=== PATIENT | female | born 1945 | race Caucasian/White ===

== ENCOUNTER → 2020-01-07 13:35 | Outpatient (BNVA) | payer MEDICARE, OTHER, SELFPAY | PROVIDERS: Family Provider Nurse Practitioner; PCP Nurse Practitioner; Visit Provider Nurse Practitioner Family | DX: N30.20 Other chronic cystitis without hematuria (principal) | CPT/HCPCS: 81001 ==

== ENCOUNTER 2020-01-11 09:34 | Outpatient (CLI) | payer MEDICARE, OTHER, SELFPAY ==
--- NOTE | 2020-01-11 09:37 | MM_ITS ---
WS: [id number] BILATERAL DIGITAL DIAGNOSTIC MAMMOGRAM MAMMOGRAPHY WITH CAD CLINICAL INFORMATION: HX OF BREAST CA COMPARISON: January 10, 2019 TECHNIQUE: Bilateral CC, MLO, and ML views. FINDINGS: Scattered fibroglandular densities bilaterally. Spiculated asymmetric density along the posterior lef t chest wall unchanged since the prior examinations consistent with prior resection site. Vascular ca lcification. No suspicious focal mass, asymmetry, calcifications, or architectural distortion. No evidence of eunice gnancy. MM/[place] [id number] IMPRESSION: BI-RADS: 2-Benign FOLLOW UP: 1 Year Follow-up Recommend return to annual diagnostic mammography.
== END 2020-01-11 09:35 | disposition home or self-care (01) ==
LOC: ONCMED 09:34
PROVIDERS: Family Provider Nurse Practitioner; PCP Nurse Practitioner; Visit Provider Internal Medicine Medical Oncology
DX: Z85.3 Personal history of malignant neoplasm of breast (principal)
CPT/HCPCS: 77066

== ENCOUNTER 2020-03-24 14:56 | Outpatient (CLI) | payer MEDICARE, OTHER, SELFPAY ==
--- NOTE | 2020-03-25 06:40 | ONC FU_ITS ---
Dr. Davis Patient Follow-Up Note Patient: Julisa Cunha Unit #: [id number]: 1945 Dicatated By: Luis Manuel Davis M.D.Date of Visit:March 24, 2020 Onc Med Follow-up/Prog Note Chief Complaint: Breast cancer. 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 She had presented with abnormal routine mammogram. The study on 12/25/2014 showed a 1.4 cm mass in the left posterior breast at 3:00 position. Mammogram on 01/09/2015 was BI-RADS 4c. She underwent excisional biopsy on 02/06/[address] Andrews. Her surgical pathology showed a 0.8 cm, grade 2/3 infiltrating adenocarcinoma with focal mucinous histology and negative margins. Lymphovascular invasion was present. Prognostic profile revealed ER 90%, MT 40%, HER-2/jose alfredo 2+ by IHC, not amplified by FISH at 1.3. [place] lymph node biopsy on 03/07/2015 recovered 3 negative lymph nodes. Thus, her disease was stage IA (T1b, N0, M0). She completed adjuvant radiation treatment on 05/05/2015 to a total dose of 6000 cGy. She did eventually agree to adjuvant hormonal treatment and she started anastrozole 1 mg daily in March of 2015. DEXA scan revealed osteopenia, with T score -1.5. She also was noted to have vitamin D deficiency and received replacement. She had subsequently developed a large cyst in the left lower breast, for which she underwent aspiration on 07/15/2015. Follow-up ultrasound of the left breast on 12/02/2015 showed decrease in the size of the cyst to 0.8 cm. As of her follow-up visit on 04/19/2018 she appeared to be tolerating treatment with acceptable toxicity and she continued anastrozole 1 mg daily. She was seen for a scheduled visit in October 2018. At that time she indicated that she had stopped taking the anastrozole 2 1/2 months earlier, apparently because it was no longer being provided to her by the data communications analyst and she was going to have to pay for it. At that time she had been feeling somewhat foggy headed and off-balance, and those symptoms did improve when she stopped the medication. She then began further adjuvant hormonal therapy with exemestane 25 mg daily. She stopped the exemestane following her visit in March 2019 due to multiple side effects. At her follow-up visit in September 2019 she appeared stable clinically and at that point she was just followed on observation/expectant management. Her other medical illnesses include hypertension and GERD. She also has chronic left sciatic pain. She is a nonsmoker. She is seen for a follow-up visit. She has been feeling pretty good generally. She reports having some aches and pains which tend to be weather related. Recently she is also been having pain in the sciatic area on the right side. That pain tends to get worse with activity and does restrict her activity somewhat. Her ECOG score is 1. She says her energy is the same as usual. She has good appetite. She does not have fever, night sweats, or hot flashes. She had developed a bad cough back in December, but that has resolved. She has no shortness of breath or chest pain. She has no GI/ complaints other than a little bit of heartburn, which she manages adequately with medication. She has had headaches which appear to be associated with salt intake, and those have been managed adequately with dietary restriction. She has no focal neurologic symptoms. Medications: Cholecalciferol 1 (3000 Units) Tablet Oral daily, Cod Liver Oil 1 (1000 mg) Capsule Oral daily, Diovan 1 (40 mg) Tablet Oral daily PRN, Gabapentin 1 (100 mg) Capsule Oral b.i.d., Triamterene-HCTZ 1 (37.5-25 mg) Tablet Oral daily Allergies: lisinopril and surgical glue. Review of Systems: Constitutional - She is generally feeling good. Her energy is good. She does light work in and around the house. Her appetite is good and weight is down 10 pounds from last visit. No fever, chills, hot flashes, or night sweats. ECOG score is 1, ENMT - No sinus congestion/drainage. No mouth sores. No sore throat or difficulty swallowing, Hematologic/Lymphatic - No abnormal bruising or bleeding, Respiratory - No shortness of breath. No cough. No pleuritic pain or hemoptysis, Cardiovascular - No angina pain. No palpitations, Gastrointestinal - No nausea or vomiting. She has heartburn in the evenings. She is taking Pepcid for this. No diarrhea or constipation. No blood in the stool or black stools, Genitourinary (F) - No dysuria or hematuria. No urinary frequency. No urgency or incontinence, Musculoskeletal - She has generalized arthritis pain as well as sciatic nerve pain that occasional limits her activity, Integumentary - No skin complications, Neurologic - No headache or dizziness. No numbness/paresthesias or other focal neurologic symptoms, Psychiatric - No anxiety or depression. No insomnia. Vital Signs: Performed on March 24, 2020 15:10 Height - 65.00 in Weight - 215.2 lbs (LOW) BSA - 2.04 sq.m BMI - 35.81 (HIGH) Temperature - 98.7 F Pulse - 62 /min Respiration - 24 /min BP - 148/72 mm(hg) (HIGH) O2 Sat - 98 % Pain - 0 Physical Examination: Constitutional - She looks good generally, Eyes - Sclerae nonicteric. Conjunctivae clear, ENMT - No lesions noted in the oral cavity, Hematologic/Lymphatic - No cervical or clavicular adenopathy, Respiratory - Lungs are clear with good air movement bilaterally, Cardiovascular - Heart rhythm is regular. There is no murmur, gallop, or rub noted, Breasts - There is mild induration in the left breast. There are no breast masses noted. There is no axillary adenopathy, Abdomen - Soft. Liver and spleen are not enlarged. There is no abdominal mass or ascites noted and there is no inguinal adenopathy, Extremities - No edema. Pedal pulses are palpable bilaterally, Neurologic - No focal neurologic deficits noted. Impression: 1. 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 She underwent excisional biopsy on 02/06/2015 followed by axillary sentinel lymph node biopsy on 03/07/2015. 2. She was given radiation to the left breast, completed on 05/05/2015 to 6000 cGy. 3. Adjuvant hormonal therapy with anastrozole 1 mg daily began in March 2015. 4. Her initial screening showed evidence of osteopenia, T score -1.5, and vitamin D deficiency. Her other medical illnesses include: 5. Hypertension. 6. GERD. 7. She has had chronic left sciatic pain. As of her follow-up visit in April 2018 she been doing well with no evidence of recurrence of the breast cancer. She continued anastrozole 1 mg daily. She opted to stop treatment in July 2018 because the medication was no longer being provided. It did appear likely that she was having some mild REED MAN symptoms with the anastrozole, and those did improve when she stopped the medication. In November 2018 she began further adjuvant hormonal therapy with exemestane 25 mg daily. Initially she seemed to be tolerating it with acceptable toxicity. However, following her visit in March 2019 she developed multiple side effects with it, and she did opt to stop taking it. During follow-up she has continued to have some musculoskeletal pain, mainly in the right sciatic area. It does limit her activity somewhat, but it does not seem to be getting worse. She had developed pretty severe headaches, those have been managed adequately with dietary sodium restriction. Overall, she appears to be doing well clinically with no evidence of recurrence of the breast cancer. Plan: She continues on observation/expectant management for the breast cancer. I will see her again in one year. Signed By: Luis Manuel Davis M.D. <<Signature on File>>
== END 2020-03-24 14:57 | disposition home or self-care (01) ==
LOC: ONCMED 14:58
PROVIDERS: PCP Nurse Practitioner; Visit Provider Internal Medicine Medical Oncology
DX: Z08 Encounter for follow-up examination after completed treatment for malignant neoplasm (principal); Z85.3 Personal history of malignant neoplasm of breast; M54.32 Sciatica, left side; R51 Headache; M85.80 Other specified disorders of bone density and structure, unspecified site; E55.9 Vitamin D deficiency, unspecified; I10 Essential (primary) hypertension; K21.9 Gastro-esophageal reflux disease without esophagitis; Z92.3 Personal history of irradiation; Z92.23 Personal history of estrogen therapy
CPT/HCPCS: G0463

== ENCOUNTER 2020-04-23 10:00 | Inpatient (IN) | payer MEDICARE, OTHER, SELFPAY ==
[2020-04-23] VITALS (7 sets, daily range): BP systolic 118–138; BP diastolic 57–77; PULSE 74–96; RESP 16–20; TEMP 36.8–37; O2SAT 92–95; BMI 35.2
--- NOTE | 2020-04-23 10:33 | XR_ITS ---
WS: [id number] Portable AP upright chest, 04/23/2020 Clinical Data: dyspnea/cough Comparison: PA and lateral chest, 05/15/2019. Findings: No nodules, masses or effusions are seen. The heart is normal. The pulmonary vascularity is not increased. No pneumonia or pneumothorax is seen. Monitor leads are on the chest wall. The aortic arch and descending aorta show minimal tortuosity XR/XR chest 1V portable [id number] Impression: Atherosclerosis.
--- NOTE | 2020-04-23 10:47 | ECG_ITS ---
Measurements Intervals [place] Rate: 96 P: 43 LA: 150 QRS: 65 QRSD: 106 T: -12 QT: 316 QTc: 401 SINUS RHYTHM POSSIBLE LEFT ATRIAL ENLARGEMENT [-0.1mV P WAVE IN V1/V2] PROBABLE INFERIOR MYOCARDIAL INFARCTION , PROBABLY OLD [35 ms Q WAVE IN II/aVF] Compared to ECG 05/24/2019 11:30:23 Ectopic atrial rhythm no longer present Short LA interval no longer present Myocardial infarct finding still present Electronically Signed On 04-23-2020 15:55:22 CDT by Tonny Tirado M.D. [id number]
--- NOTE | 2020-04-23 10:48 | ED_ITS ---
HPI - General Adult General: Chief complaint: General Medical Stated complaint: weak/confused/can't keep food down Time Seen by Provider: 04/23/20 10:18 History of Present Illness: HPI narrative: 75-year-old female comes in complaining nausea vomiting weakness. Last night she slipped to the floor had to call her daughter to come and get her up and help she was not down for prolonged period of time. She has had chronic back pain with this as well not really has not changed she denies any dysuria urgency or frequency denies any hematemesis coffee-ground emesis. She has a generalized discomfort in her abdomen that she describes as a queasiness but no real sharp distinct pain. Her daughter states she seems rather lethargic. Patient denies any shortness of breath or cough. She has noted that eating certain things makes it worse. Onset (ago): day(s) Location: abdomen Radiation: non-radiation Severity: moderate Quality: aching Pain Consistency: intermittent Relieving factors: other (Not eating) Exacerbating factors: eating Associated symptoms: Reports decreased appetite, malaise, nausea, vomiting and weakness; Deny dyspnea, fevers/chills, headache(s), rash, palpitations, seizures, short of breath or syncope Treatments prior to arrival: none Review of Systems Const: Reports: malaise ENMT: Denies: throat pain, ear or mastoid pain, nasal discharge or nasal conge stion Card: Denies: palpitations or syncope Resp: Denies: dyspnea GI: Reports: nausea and vomiting : Denies: flank pain, difficulty voiding, dysuria, urinary frequency or urinary urgency Skin/Breast: Denies: rash Neuro: Denies: headache(s) PFSH ED PFSH: Medical History Chronic cystitis Chronic left lumbar radiculopathy Gastro-esophageal reflux disease without esophagitis Gross hematuria History of cancer of left breast December 2014 HTN, goal below 130/80 Mixed hyperlipidemia Refusal of statin medication by patient Vitamin D insufficiency Surgical History H/O breast biopsy History of bilateral cataract extraction S/P lymph node biopsy Status post hip replacement Family History Family/Other CAD (coronary artery disease) Stroke Hypertension Cancer Breast Social History Smoking and tobacco status: never smoked Second hand smoke exposure: No Smoking risk assessment/counseling performed?: No Alcohol intake: never Desire information about alcohol rehabilitation?: No Counseling given: No Desire information about substance/drug rehabilitation?: No Counseling given: No Caregiver/support person: No Lives independently: Yes Household members: none Marital status: Current occupational status: retired History of recent travel: No Physical Exam Const: COMMON NORMALS: no acute distress GENERAL APPEARANCE: cooperative and comfortable ORIENTATION/CONSCIOUSNESS: Yes awake, Yes oriented to person, Yes oriented to place and Yes oriented to time HENMT: COMMON NORMALS: normocephalic, atraumatic, hearing grossly normal bilaterally, external ears normal, EAC's normal, TM's normal bilaterally, Normal nasal mucous membranes and turbinates present, moist oral mucous membranes and oropharynx normal HEAD & SCALP: normocephalic and atraumatic NOSE: Normal nasal mucous membranes and turbinates present EXTERNAL EAR: Yes external ears normal EXTERNAL AUDITORY CANAL: EAC's normal TYMPANIC MEMBRANE: TM's normal bilaterally Eye: COMMON NORMALS: Equal, round and reactive pupils present, EOMs intact bilaterally, conjunctivae normal and no scleral icterus CONJUNCTIVA: Yes conjunctivae normal PUPIL: Yes Equal, round and reactive pupils present Neck/C-Spine: COMMON NORMALS: full ROM, no lymphadenopathy, supple and no JVD Lymph: LYMPHATIC: no lymphadenopathy noted and no lymphedema noted Resp: COMMON NORMALS: normal respiratory effort, No retractions, No use of accessory muscles and clear to auscultation bilaterally AUSCULTATION: clear to auscultation bilaterally Cardio: COMMON NORMALS: no JVD, regular rate, regular rhythm and No murmurs present (Cardio) RATE: regular rate RHYTHM: regular rhythm GI: COMMON NORMALS: Soft to palpation and No hepatosplenomegaly present AUSCULTATION: Yes normoactive bowel sounds PALPATION: Yes Soft to palpation, No Tenderness to palpation present (GI), No Guarding due to palpation present (GI) and Yes No hepatosplenomegaly present Extremity: COMMON NORMALS: normal to inspection, capillary refill normal, no clubbing, cyanosis or edema, no calf tenderness and no pedal edema Neuro: SENSORIUM/ORIENTATION: Yes oriented to person, Yes oriented to place and Yes oriented to time Skin: COMMON NORMALS: no rashes or lesions noted GENERAL SKIN EXAM: no rashes or lesions noted Course Vital Signs: Vital signs: Vital Signs Temperature 98.2 F 04/23/20 10:26 Pulse Rate 92 04/23/20 15:14 Respiratory Rate 18 04/23/20 15:14 Blood Pressure 135/70 04/23/20 15:14 Pulse Oximetry 95 04/23/20 15:14 MDM - General Adult MDM Narrative: Medical decision making narrative: Reviewed the findings the patient has chronic cystitis she has been on Bactrim recently does not look like she is improving I suspect the Bactrim may have exacerbated her kidney function her usual creatinine is around 1 3 she is up to 2 4 additionally because of persistent nausea and vomiting she is hyponatremic which also contributes significantly to her generalized weakness. Also of note is for thrombocytopenia which when reviewing her old notes is also new. Discussed with Dr. Choi she will admit. Lab Data: Labs: Lab Results 04/23/20 04/23/20 04/23/20 Range/Units 10:55 10:55 10:55 WBC 8.4 (4.0-10.0) 10^3/ uL RBC 4.76 (4.1-5.3) 10^6/u L Hgb 13.7 (11.5-15.3) g/dL Hct 42.7 (37.0-47.0) % MCV 89.7 (81-99) fL MCH 28.8 (28.0-34.0) pg MCHC 32.1 (30.0-36.0) g/dL RDW 13.3 (12.1-15.1) % Plt Count 53 L (130-400) 10^3/c mm MPV 12.6 H (7.4-10.4) fL Nucleated RBC % (a uto) 0 % Total Counted 100 (0-100) Atypical Lymphs % 1.0 (0-5) % Absolute Neutrophi ls 7.4 H (1.4-6.5) 10^3/c mm Segmented Neutroph ils 70 % Abs Segm Neuts (Ma n) 5.8 (1.6-7.1) 10/cmm Band Neutrophils 18.0 % Abs Band Neuts (Ma n) 1.5 H (0.0-1.2) 10^3/c mm Absolute Lymphocyt es 0.7 L (1.2-3.4) 10^3/c mm Lymphocytes (Manua l) 7 % Monocytes (Manual) 4.0 % Absolute Monocytes 0.3 (0.1-0.6) 10^3/c mm Nucleated RBCs # 0.0 /100WBC Platelet Estimate Decreased L (Normal) Sodium 122 L (136-145) mmol/L Potassium 4.0 (3.5-5.1) mmol/L Chloride 87 L (98-107) mmol/L Carbon Dioxide 19 L (22-29) mmol/L Anion Gap 20.0 H (5-19) BUN 42 H (8-23) mg/dL Creatinine 2.4 H (0.5-0.9) mg/dL Glucose 122 H (65-115) mg/dL Calculated Osmolal ity 253 L (285-295) mOsm/k g Lactate 2.0 (0.5-2.2) mmol/L Calcium 8.3 L (8.5-10.5) mg/dL Total Bilirubin 0.9 (0.15-1.2) mg/dL AST 811 H (0-32) U/L ALT 408 H (0-33) U/L Alkaline Phosphata se 192 H (35-105) IU/L Creatine Kinase (26-192) U/L Total Protein 6.1 L (6.6-8.7) g/dL Albumin 3.4 L (3.5-5.2) g/dL Globulin 2.7 (1.3-4.6) g/dL Lipase 35 (13-60) U/L Urine Color (Yellow) Urine Appearance (CLEAR) Urine pH (5-7) Ur Specific Gravit y (1.005-1.030) Urine Protein (Negative) Urine Glucose (UA) (Normal) Urine Ketones (Negative) Urine Blood (Negative) Urine Nitrate (Negative) Urine Bilirubin (NEGATIVE) Urine Urobilinogen (Negative) mg/dL Ur Leukocyte [place] ase (Negative) Urine RBC (0-2) /hpf Urine WBC (0-5) /hpf Ur Squamous Epith Cells (0-5) Ur Transition Epit h Cell /hpf Urine Bacteria (NONE) Coarse Granular Ca sts /lpf Urine Mucus 04/23/20 04/23/20 Range/Units 10:55 11:27 WBC (4.0-10.0) 10^3/ uL RBC (4.1-5.3) 10^6/u L Hgb (11.5-15.3) g/dL Hct (37.0-47.0) % MCV (81-99) fL MCH (28.0-34.0) pg MCHC (30.0-36.0) g/dL RDW (12.1-15.1) % Plt Count (130-400) 10^3/c mm MPV (7.4-10.4) fL Nucleated RBC % (a uto) % Total Counted (0-100) Atypical Lymphs % (0-5) % Absolute Neutrophi ls (1.4-6.5) 10^3/c mm Segmented Neutroph ils % Abs Segm Neuts (Ma n) (1.6-7.1) 10/cmm Band Neutrophils % Abs Band Neuts (Ma n) (0.0-1.2) 10^3/c mm Absolute Lymphocyt es (1.2-3.4) 10^3/c mm Lymphocytes (Manua l) % Monocytes (Manual) % Absolute Monocytes (0.1-0.6) 10^3/c mm Nucleated RBCs # /100WBC Platelet Estimate (Normal) Sodium (136-145) mmol/L Potassium (3.5-5.1) mmol/L Chloride (98-107) mmol/L Carbon Dioxide (22-29) mmol/L Anion Gap (5-19) BUN (8-23) mg/dL Creatinine (0.5-0.9) mg/dL Glucose (65-115) mg/dL Calculated Osmolal ity (285-295) mOsm/k g Lactate (0.5-2.2) mmol/L Calcium (8.5-10.5) mg/dL Total Bilirubin (0.15-1.2) mg/dL AST (0-32) U/L ALT (0-33) U/L Alkaline Phosphata se (35-105) IU/L Creatine Kinase 353 H* (26-192) U/L Total Protein (6.6-8.7) g/dL Albumin (3.5-5.2) g/dL Globulin (1.3-4.6) g/dL Lipase (13-60) U/L Urine Color Yellow (Yellow) Urine Appearance Sl cloudy A (CLEAR) Urine pH 5 (5-7) Ur Specific Gravit y 1.020 (1.005-1.030) Urine Protein 1+ H (Negative) Urine Glucose (UA) Norm (Normal) Urine Ketones Negative (Negative) Urine Blood 3+ H (Negative) Urine Nitrate Negative (Negative) Urine Bilirubin 1+ H (NEGATIVE) Urine Urobilinogen 4 H (Negative) mg/dL Ur Leukocyte [place] ase 1+ H (Negative) Urine RBC 0-4 H (0-2) /hpf Urine WBC 40-55 H (0-5) /hpf Ur Squamous Epith Cells 0-4 H (0-5) Ur Transition Epit h Cell 5-10 /hpf Urine Bacteria 2+ H (NONE) Coarse Granular Ca sts 25-40 H /lpf Urine Mucus Trace Discharge Plan Discharge Patient Disposition: Admitted As Inpatient Admit Provider: Renetta Pate Clinical Impression: Acute kidney injury, Chronic cystitis, Chronic left lumbar radiculopathy, Acute hyponatremia, Thrombocytopenia Condition: Stable Interventions: ED Discharge Assessment Last Done: 04/23/20 15:14 ED Charges Last Done: 04/23/20 15:14 Discharge Date/Time: 04/23/20 15:39 Coding Level of Care Code ED Electric[employer] Office for [facility] Fwd Exam Comprehensive
[2020-04-23] MEDS: ondansetron 2 mg/ML SDV 2 mL 4 MG IVP (11:05)
[2020-04-23 11:06] LABS: Hematocrit 42.7 % (37.0-47.0); Hemoglobin 13.7 g/dL (11.5-15.3); Mean Corpuscular HGB Conc 32.1 g/dL (30.0-36.0); Mean Corpuscular Hemoglobin 28.8 pg (28.0-34.0); Mean Corpuscular Volume 89.7 fL (81-99); Mean Platelet Volume 12.6 fL (7.4-10.4); Nucleated Red Blood Cells % 0 %; Platelet Count 53 10^3/cmm (130-400); Positive M 1; Red Blood Count 4.76 10^6/uL (4.1-5.3); Red Cell Distribution Width 13.3 % (12.1-15.1); White Blood Count 8.4 10^3/uL (4.0-10.0)
[2020-04-23] MEDS: sodium chloride 0.9% 500 ML 999 ML IV (11:06)
[2020-04-23 11:19] LABS: Alanine Aminotransferase 408 U/L (0-33); Albumin Level 3.4 g/dL (3.5-5.2); Alkaline Phosphatase 192 IU/L (35-105); Blood Urea Nitrogen 42 mg/dL (8-23); Calcium 8.3 mg/dL (8.5-10.5); Carbon Dioxide 19 mmol/L (22-29); Chloride 87 mmol/L (98-107); Globulin 2.7 g/dL (1.3-4.6); Glucose 122 mg/dL (65-115); Lipase 35 U/L (13-60); Osmolality Calculated 253 mOsm/kg (285-295); Sodium 122 mmol/L (136-145); Total Bilirubin 0.9 mg/dL (0.15-1.2); Total Protein 6.1 g/dL (6.6-8.7)
[2020-04-23 11:35] LABS: Add Urine Microscopic? YES; Bilirubin Urine 1+ (NEGATIVE); Blood Urine 3+ (Negative); Glucose Urine UA Norm (Normal); Ketones Urine Negative (Negative); Leukocyte Esterase Urine 1+ (Negative); Nitrate Urine Negative (Negative); Protein Urine 1+ (Negative); Urine Color Yellow (Yellow); Urobilinogen Urine 4 mg/dL (Negative); pH Urine 5 (5-7)
[2020-04-23 11:39] LABS: Slide Review Slide Review Perform
[2020-04-23 11:42] LABS: Absolute Neutrophil 7.4 10^3/cmm (1.4-6.5); Absolute Segmented Neutrophil 5.8 10/cmm (1.6-7.1); Band Neutrophils Absolute 1.5 10^3/cmm (0.0-1.2); Lymphocytes 7 %; Monocytes Absolute 0.3 10^3/cmm (0.1-0.6); Platelet Estimate Decreased (Normal); Segmented Neutrophils 70 %; Total Cells Counted 100 (0-100)
[2020-04-23 11:43] LABS: Lymphocytes Absolute 0.7 10^3/cmm (1.2-3.4)
[2020-04-23 11:46] LABS: Bacteria Urine 2+; RBC Urine 0-4 /hpf (0-2); Squamous Epithelial Cell Urine 0-4 (0-5); WBC Urine 40-55 /hpf (0-5)
[2020-04-23 11:47] LABS: Coarse Granular Casts Urine 25-40 /lpf; Mucus Urine TRACE
[2020-04-23 11:48] LABS: Add Urine Culture? Yes
[2020-04-23 12:02] LABS: Aspartate Amino Transferase 811 U/L (0-32)
[2020-04-23] MEDS: cefTRIAXone 1,000 MG in sodium chloride 0.9% (plus) 50 ML 100 MG IV (13:51)
[2020-04-23 14:32] LABS: Creatine Phosphokinase 353 U/L (26-192)
--- NOTE | 2020-04-23 14:52 | PM.HP ---
Providers/Chief Complaint Admitting Physician: Renetta Pate MD Primary Care Provider: Natasha Sheffield, VIDEO PHOTOGRAPHER-C Chief Complaint: weak/confused/can't keep food down History of Present Illness Julisa Cunha is a 75 year old female who presented to the emergency room after a second episode falling down at home within the preceding 24 hours. Both times EMS had to be called to help get her up. Over the last few days patient has been feeling progressively weaker and rundown. She has had some intermittent fevers. She has had nausea. At times she has been confused. She has a history of chronic cystitis with recurrent urinary tract infections and has a standing prescription for Bactrim which she recently started. Symptoms though this time are different than what she usually has with UTIs. She denies the same degree of dysuria or urinary frequency. Family had wanted her to come into the emergency room last night but she insisted that she was okay. She seemed more confused this morning and after the second fall was not given a choice about whether or not she wanted to come in. She has not been eating very much due to nausea and some vomiting. In the emergency room she was found to have multiple laboratory abnormalities including acute renal failure, thrombocytopenia, transaminitis, hyponatremia, elevated CK level Elevated procalcitonin. Chest x-ray did not show any acute infiltrative process. Urine was cloudy and suggestive of a urinary tract infection. She was given Rocephin and is being admitted for further evaluation and treatment. Of note lactic acid level was normal at 2.0. Patient has had several ticks already this year. One in particular was behind her left knee and quite difficult to remove. She is not sure how long it was there. This is been within the last few weeks. Review of Systems Const: Reports: fever(s), chills and change in appetite Eyes: Denies: change in vision ENMT: Reports: dry mouth; Denies: throat pain or nasal congestion Card: Denies: chest pain, palpitations or edema Resp: Denies: dyspnea, productive cough or non-productive cough GI: Reports: abdominal pain, nausea and vomiting; Denies: change in bowel habits : Denies: flank pain, dysuria or urinary frequency Musc: Denies: extremity pain (but achey all over) Skin/Breast: Reports: other (tick bites); Denies: rash or sores Neuro: Reports: weakness in extremities (general) and confusion; Denies: headache(s) Psych: Denies: anxiety or depression Aleksandr/Lymph: Denies: easy bruising or easy bleeding Medications/Allergies Home Medications Medication Instructions Recorded Confirmed Last Taken Type cholecalciferol (vitamin D3) 100 4,000 unit PO DAILY 01/07/20 04/23/20 04/20/20 History mcg (4,000 unit) capsule cod liver oil 1 cap PO DAILY 01/07/20 04/23/20 04/20/20 History famotidine 20 mg tablet 20 mg PO DAILY #90 tab 02/12/20 04/23/20 04/20/20 Rx gabapentin 100 mg capsule 100 mg PO BID #180 cap 02/12/20 04/23/20 04/23/20 Rx triamterene 37.5 1 tab PO QAM #90 tab 02/12/20 04/23/20 04/23/20 Rx mg-hydrochlorothiazide 25 mg tablet ibuprofen 600 mg PO BID PRN 04/23/20 04/23/20 04/22/20 History valsartan [Diovan] 80 mg PO PRN PRN 04/23/20 04/23/20 Unknown History Allergies Allergy/AdvReac Type Severity Reaction Status Date / Time benzoin Allergy Unknown Unknown Verified 12/20/19 13:07 lisinopril Allergy dizziness, Verified 12/20/19 13:07 head pain PFSH Acute PFSH: Medical History Chronic cystitis Chronic left lumbar radiculopathy Gastro-esophageal reflux disease without esophagitis Gross hematuria History of cancer of left breast December 2014 HTN, goal below 130/80 Mixed hyperlipidemia Refusal of statin medication by patient Vitamin D insufficiency Surgical History H/O breast biopsy History of bilateral cataract extraction S/P lymph node biopsy Status post hip replacement Family History Family/Other CAD (coronary artery disease) Stroke Hypertension Cancer Breast Social History Smoking and tobacco status: never smoked Second hand smoke exposure: No Smoking risk assessment/counseling performed?: No Alcohol intake: never Desire information about alcohol rehabilitation?: No Counseling given: No Desire information about substance/drug rehabilitation?: No Counseling given: No Caregiver/support person: No Lives independently: Yes Household members: none Marital status: Current occupational status: retired History of recent travel: No Vitals/I&O/Wt Last Vital Signs Temp 98.2 F 04/23/20 10:26 Pulse 96 04/23/20 10:26 Resp 16 04/23/20 10:26 BP 123/62 04/23/20 10:26 Pulse Ox 93 04/23/20 10:26 Weight last 48 hrs Weight 96.162 kg Physical Exam Const: OTHER: Alert, oriented x3, cooperative, mildy ill appearing HENMT: OTHER: Normocephalic atraumatic, drymucus membranes Eye: OTHER: Pupils equally round and reactive to light Neck/C-Spine: OTHER: Supple, no lymphadenopathy Resp: OTHER: Clear to auscultation bilaterally, no rales, rhonchi or wheezes noted, no accessory muscle use noted Cardio: OTHER: Regular rate and rhythm, no murmurs gallops or rubs. GI: OTHER: Abdomen soft, nontender, nondistended with positive bowel sounds Extremity: NARRATIVE EXTREMITY EXAM: no pitting edema Neuro: OTHER: Face symmetric, speech clear, moves all extremities though generally weak Psych: OTHER: Normal affect Skin: OTHER: a few minor healing scratches noted, no rashes Data : 04/24/20 03:30 04/24/20 03:30 Micro: Microbiology 04/23/20 11:00 Blood Culture - Preliminary Blood SPECIMEN COLLECTED 04/23/20 10:55 Blood Culture - Preliminary Blood SPECIMEN COLLECTED A&P Assessment and plan (1) Recurrent falls: Multifactorial from infection, renal failure, hyponatremia Status: Acute (2) Acute encephalopathy: Multifactorial from infection, renal failure, hyponatremia Status: Acute (3) Acute renal failure: On chronic kidney disease Status: Acute (4) Acute cystitis: In a patient with chronic cystitis Status: Acute (5) Tick-borne disease: Strongly suspected given thrombocytopenia and transaminitis combined with report of previous tick bite Status: Acute Additional A&P Information Inpatient admission Rocephin Doxycycline Tick titers have been sent Discussed this likely diagnosis with family as well as patient Follow-up urine cultures Blood cultures were collected Continue IV fluids Most home medications are held including Diovan, triamterene/hydrochlorothiazide, ibuprofen Held home Pepcid due to thrombocytopenia We will add calcium carbonate Reinforced with patient not to get out of bed without assistance No pharmacological DVT prophylaxis secondary to thrombocytopenia, SCDs ordered Supportive care otherwise Full code Plans reviewed with patient and daughter. Daughter has iPhone and would like to be able to communicate with her mother via video if arrangements for such can be made while she is here Attestations Medical Necessity Statement*: Anticipated stay greater than 2 midnights in a patient with symptoms as noted above. She has evidence of urinary tract infection but I think her symptoms are probably to be more related to tickborne illness. At high risk of clinical decline given comorbid conditions and recurrent issues over the last few days. 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
[2020-04-23] MEDS: doxycycline 100 mg Tablet PO (16:45)
[2020-04-23] MEDS: sodium chloride 0.9% 1,000 ML 100 ML IV (16:46)
[2020-04-23 16:54] LABS: Procalcitonin 3.88 ng/mL (0-0.5)
[2020-04-23] MEDS: gabapentin 100 mg Capsule PO (17:26)
[2020-04-24 03:50] LABS: Basophils # 0.1 10^3/uL (0.0-0.1); Basophils % 0.9 %; Eosinophils % 0.3 %; Hematocrit 37.6 % (37.0-47.0); Lymphocytes # 2.4 10^3/uL (0.8-4.8); Lymphocytes % 36.4 %; Mean Corpuscular HGB Conc 31.9 g/dL (30.0-36.0); Mean Corpuscular Hemoglobin 28.5 pg (28.0-34.0); Mean Corpuscular Volume 89.3 fL (81-99); Mean Platelet Volume 11.2 fL (7.4-10.4); Monocytes # 0.4 10^3/uL (0.2-0.9); Monocytes % 6.2 %; Neutrophils # 3.6 10^3/uL (1.8-7.7); Neutrophils % 55.9 %; Nucleated Red Blood Cells % 0 %; Platelet Count 54 10^3/cmm (130-400); Red Blood Count 4.21 10^6/uL (4.1-5.3); Red Cell Distribution Width 13.6 % (12.1-15.1); White Blood Count 6.5 10^3/uL (4.0-10.0)
[2020-04-24 03:53] VITALS: BP 118/63; PULSE 88; RESP 20; TEMP 37.1; O2SAT 93
[2020-04-24] MEDS: sodium chloride 0.9% 1,000 ML 100 ML IV ×3 (03:55→23:23)
--- NOTE | 2020-04-24 03:58 | PC.NURSE ---
after ambulating with walker to the bathroom, although patient did well physically, she did become short of breath after getting back to the bed. Checked her pulse/O2 and it was 88%. patient stated this is not normal for her. d/t fluid going at 100ml/hr i checked he lungs for signs of fluid overload. Lungs were clear, but diminished - no audible crackles. Placed patient on 2L nasal cannula and after a short time patient settled at 93% O2. i explained to the patient about SOB and if it got worse to let a nurse know. Pt states no HX of CHF.
[2020-04-24 04:10] LABS: Anion Gap 15.9 (5-19); Blood Urea Nitrogen 39 mg/dL (8-23); Calcium 8.3 mg/dL (8.5-10.5); Carbon Dioxide 22 mmol/L (22-29); Chloride 93 mmol/L (98-107); Glucose 100 mg/dL (65-115); Magnesium 2.1 mg/dL (1.7-2.3); Osmolality Calculated 262 mOsm/kg (285-295); Potassium 3.9 mmol/L (3.5-5.1); Sodium 127 mmol/L (136-145)
[2020-04-24 05:31] LABS: Slide Review Slide Review Perform
[2020-04-24 08:00] VITALS: BP 125/72; PULSE 85; RESP 18; TEMP 36.9; O2SAT 94
[2020-04-24] MEDS: gabapentin 100 mg Capsule PO ×2 (08:02→17:12)
[2020-04-24] MEDS: doxycycline 100 mg Tablet PO ×2 (08:02→17:12)
[2020-04-24 08:41] LABS: Alanine Aminotransferase 409 U/L (0-33); Albumin Level 2.9 g/dL (3.5-5.2); Alkaline Phosphatase 175 IU/L (35-105); Globulin 2.8 g/dL (1.3-4.6); Total Bilirubin 0.6 mg/dL (0.15-1.2); Total Protein 5.7 g/dL (6.6-8.7)
[2020-04-24 08:51] LABS: INR 1.07 (0.8-1.2); Partial Thromboplastin Time 32.2 SECONDS (23.9-36.7)
[2020-04-24 08:57] LABS: Aspartate Amino Transferase 812 U/L (0-32)
--- NOTE | 2020-04-24 10:35 | PC.CHAP ---
Pastoral Care Encounter/Spiritual Assessment Type of Contact [] Declined general inspector visit [] Patient/Family/Request visit [] Outpatient visit [] Follow-up visit [] Physician referral [] Code/Alert [x] Routine visit [] Staff referral [] Actively dying [] Patient sleeping [] Family support [] [] Out of room [] Palliative care [] [] Receiving care in room [] Pre-surgical visit [] Trauma [] Long length of stay [] ICU visit [] Other: Relational/Emotional Strength [x] Patient feels connected with others/family/visitors/staff [] Distress [] Loneliness/isolation [] Abandonment Spirituality of Patient [x] Person of Sharri [] Attends [facility] of their Sharri [] Believes in Prayer [] Reads Bible or Yazidism materials [x] There are Spiritual issues to be addressed Patient Registration Representative Interventions [x] Prayer [x] Active listening [] Non-anxious presence [] Spiritual/emotional support [] Crisis/trauma care [] Spiritual counseling [] Bereavement support [] Provided bereavement packet [] Provided Bible/devotional materials [] Provided toy/stuffed animal, coloring book to patient or family member [] Provided Communion [] Anointing/[place] [] Salvation [] Completed spiritual assessment [] Other: Impact on Illness or Injury [] Angry [] Fearful [] Anxious [] Often cries [] Exhaustion [] Unable to work [] Unable to attend taoism [] Unable to walk/stand [] Unable to read [] Unable to drive [] Unable to eat/drink [] Unable to sleep [] Unable to be with family [] Patient intubated [] Other: Summary Time spent with patient 3 minutes
[2020-04-24 11:20] VITALS: BP 109/71; PULSE 69; RESP 16; TEMP 36.8; O2SAT 93
[2020-04-24] MEDS: cefTRIAXone 1,000 MG in sodium chloride 0.9% (plus) 50 ML 100 MG IV (12:22)
[2020-04-24 15:24] VITALS: BP 106/69; PULSE 77; RESP 16; TEMP 36.9; O2SAT 92
[2020-04-24 20:00] VITALS: BP 117/71; PULSE 67; RESP 16; TEMP 36.6; O2SAT 97
--- NOTE | 2020-04-24 22:31 | PM.PN ---
Subjective Subjective: Interval history: Patient feeling better today. Has a little bit of an appetite. No vomiting. Still very tired and weak. No new complaints. Medications: Medication Review Details: On doxycycline and Rocephin Vitals/I&O/Wt Last Vital Signs Temp 97.8 F 04/24/20 20:00 Pulse 67 04/24/20 20:00 Resp 16 04/24/20 20:00 BP 117/71 04/24/20 20:00 Pulse Ox 97 04/24/20 20:00 04/24/20 04/24/20 04/24/20 06:59 14:59 22:59 Intake Total 1000 / 1790 1616.667 / 1616.667 760 / 2376.667 Balance 1000 / 1790 1616.667 / 1616.667 760 / 2376.667 Weight last 48 hrs Weight 96.479 kg Weight 96.162 kg Physical Exam Const: OTHER: Less ill-appearing, alert, cooperative HENMT: OTHER: Moist mucus membranes Eye: OTHER: Extraocular movements are intact Neck/C-Spine: OTHER: Supple Resp: OTHER: Clear to auscultation bilaterally Cardio: OTHER: Regular rate and rhythm, no murmurs GI: OTHER: Abdomen soft, nontender, nondistended with positive bowel sounds Extremity: NARRATIVE EXTREMITY EXAM: No pitting edema, no erythematous or swollen joints noted Neuro: OTHER: Face symmetric, speech clear, moves all extremities though generally weak Psych: OTHER: Normal affect Skin: OTHER: No rashes or significant petechia noted Data : 04/24/20 03:30 04/24/20 03:30 Micro: Microbiology 04/23/20 10:55 Blood Culture - Preliminary Blood NEGATIVE TO DATE 04/23/20 11:00 Blood Culture - Preliminary Blood NEGATIVE TO DATE 04/23/20 11:27 Urine Culture - Preliminary Urine Catheterized Gram Negative Rods A&P Assessment and plan (1) Recurrent falls: Multifactorial from infection, renal failure, hyponatremia Status: Acute (2) Acute encephalopathy: Improved, suspect a large part of it was due to renal failure and other electrolyte abnormalities Status: Acute (3) Acute renal failure: On chronic kidney disease stage II. Creatinine improved today with hydration Status: Acute Qualifiers: Acute renal failure type: with acute tubular necrosis Qualified Code(s): N17.0 - Acute kidney failure with tubular necrosis (4) Acute cystitis: In a patient with chronic cystitis Status: Acute Qualifiers: Hematuria presence: without hematuria Qualified Code(s): N30.00 - Acute cystitis without hematuria (5) Tick-borne disease: Strongly suspected diagnosis given thrombocytopenia and transaminitis combined with report of previous tick bite Status: Acute (6) Gastro-esophageal reflux disease without esophagitis: Status: Chronic Additional A&P Information Continue Rocephin and follow-up urine cultures Continue doxycycline and follow-up tick titers Follow-up pending blood cultures Decrease IV fluids Remains off of Diovan, triamterene/hydrochlorothiazide and ibuprofen Off of home Pepcid due to thrombocytopenia, calcium carbonate ordered in interim PT evaluation No pharmacological DVT prophylaxis secondary to thrombocytopenia, SCDs ordered Reviewed plans and findings with patient as well as later with her daughter. Both were given an opportunity to ask questions Daughter has iPhone and would like to be able to communicate with her mother via video if arrangements for such can be made while she is here Supportive care otherwise Anticipate discharge home although she may require some close monitoring by available family or even staying with family short-term while she recovers. She will agree to home health if it is felt necessary. Her daughter lives an hour away. Full code Attestations Medical Necessity Statement*: Requires ongoing inpatient stay while we monitor response to treatment and follow-up pending urine cultures. 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
[2020-04-25] VITALS: BP 103/62; PULSE 60; RESP 17; TEMP 36.5; O2SAT 95
[2020-04-25 04:00] VITALS: BP 122/69; PULSE 67; RESP 16; TEMP 36.3; O2SAT 122
[2020-04-25 05:18] LABS: Basophils % 0.9 %; Eosinophils % 0.2 %; Hematocrit 35.9 % (37.0-47.0); Hemoglobin 11.3 g/dL (11.5-15.3); Lymphocytes # 2.9 10^3/uL (0.8-4.8); Lymphocytes % 62.7 %; Mean Corpuscular HGB Conc 31.5 g/dL (30.0-36.0); Mean Corpuscular Hemoglobin 28.6 pg (28.0-34.0); Mean Corpuscular Volume 90.9 fL (81-99); Mean Platelet Volume 11.1 fL (7.4-10.4); Monocytes # 0.4 10^3/uL (0.2-0.9); Monocytes % 7.6 %; Neutrophils # 1.3 10^3/uL (1.8-7.7); Neutrophils % 28.4 %; Nucleated Red Blood Cells % 0 %; Platelet Count 57 10^3/cmm (130-400); Red Blood Count 3.95 10^6/uL (4.1-5.3); Red Cell Distribution Width 14.1 % (12.1-15.1); White Blood Count 4.6 10^3/uL (4.0-10.0)
[2020-04-25 05:44] LABS: Alanine Aminotransferase 338 U/L (0-33); Albumin Level 2.6 g/dL (3.5-5.2); Alkaline Phosphatase 158 IU/L (35-105); Anion Gap 15.6 (5-19); Aspartate Amino Transferase 576 U/L (0-32); Blood Urea Nitrogen 25 mg/dL (8-23); Carbon Dioxide 22 mmol/L (22-29); Chloride 100 mmol/L (98-107); Creatinine Clr Calc Pharmacy 47.5255; Globulin 2.7 g/dL (1.3-4.6); Glucose 89 mg/dL (65-115); Osmolality Calculated 274 mOsm/kg (285-295); Potassium 3.6 mmol/L (3.5-5.1); Sodium 134 mmol/L (136-145); Total Bilirubin 0.4 mg/dL (0.15-1.2); Total Protein 5.3 g/dL (6.6-8.7)
[2020-04-25 06:04] LABS: Slide Review Slide Review Perform
[2020-04-25 07:32] VITALS: BP 110/68; PULSE 63; RESP 18; TEMP 36.5; O2SAT 96
[2020-04-25] MEDS: doxycycline 100 mg Tablet PO ×2 (08:48→17:59)
[2020-04-25] MEDS: gabapentin 100 mg Capsule PO ×2 (08:49→17:59)
--- NOTE | 2020-04-25 09:28 | PC.CHAP ---
Pastoral Care Encounter/Spiritual Assessment Type of Contact [] Declined melter assistant visit [] Patient/Family/Request visit [] Outpatient visit [] Follow-up visit [] Physician referral [] Code/Alert [x] Routine visit [] Staff referral [] Actively dying [] Patient sleeping [] Family support [] [] Out of room [] Palliative care [] [] Receiving care in room [] Pre-surgical visit [] Trauma [] Long length of stay [] ICU visit [] Other: Relational/Emotional Strength [] Patient feels connected with others/family/visitors/staff [] Distress [] Loneliness/isolation [] Abandonment Spirituality of Patient [] Person of Sharri [] Attends Jain of their Sharri [] Believes in Prayer [] Reads Bible or Episcopal materials [] There are Spiritual issues to be addressed Mobile Pet Groomer Interventions [x] Prayer [] Active listening [] Non-anxious presence [] Spiritual/emotional support [] Crisis/trauma care [] Spiritual counseling [] Bereavement support [] Provided bereavement packet [] Provided Bible/devotional materials [] Provided toy/stuffed animal, coloring book to patient or family member [] Provided Communion [] Anointing/[place] [] Salvation [x] Completed spiritual assessment [] Other: Impact on Illness or Injury [] Angry [] Fearful [] Anxious [] Often cries [] Exhaustion [] Unable to work [] Unable to attend methodist [] Unable to walk/stand [] Unable to read [] Unable to drive [] Unable to eat/drink [] Unable to sleep [] Unable to be with family [] Patient intubated [] Other: Summary Visited briefly with patient, feeling stronger. Time spent with patient 5 min
[2020-04-25] MEDS: sodium chloride 0.9% 1,000 ML 100 ML IV ×2 (10:08→19:52)
[2020-04-25 12:00] VITALS: BP 117/66; PULSE 65; RESP 18; TEMP 36.7; O2SAT 95
[2020-04-25] MEDS: cefTRIAXone 1,000 MG in sodium chloride 0.9% (plus) 50 ML 100 MG IV (12:42)
[2020-04-25 13:25] LABS: Lyme AB Screen <0.90 index
[2020-04-25 15:02] VITALS: BP 132/77; PULSE 69; RESP 18; TEMP 36.8; O2SAT 96
--- NOTE | 2020-04-25 17:51 | P.PN_ITS ---
Subjective Subjective: Interval history: Patient feeling better. Still weak. Got a little bit dizzy when she stood up with physical therapy today but did not tell them that. It resolved after a few minutes. Tolerating oral intake. No new complaints. Medications: Medication Review Details: Remains on doxycycline and Rocephin Vitals/I&O/Wt Last Vital Signs Temp 98.3 F 04/25/20 15:02 Pulse 69 04/25/20 15:02 Resp 18 04/25/20 15:02 BP 132/77 04/25/20 15:02 Pulse Ox 96 04/25/20 15:02 04/25/20 04/25/20 04/25/20 06:59 14:59 22:59 Intake Total 120 / 3095.000 1480 / 1480 Output Total 200 / 400 Balance -80 / 2695.000 1480 / 1480 Weight last 48 hrs Weight 100.301 kg Weight 100.301 kg Weight 96.479 kg Physical Exam Const: OTHER: Alert and oriented, cooperative still looks weak Eye: OTHER: Extraocular movements are intact Neck/C-Spine: OTHER: Supple Resp: OTHER: Clear to auscultation bilaterally Cardio: OTHER: Regular rate and rhythm, no murmurs GI: OTHER: Abdomen soft, nontender Extremity: NARRATIVE EXTREMITY EXAM: No pitting edema, no erythematous or swollen joints noted Neuro: OTHER: Face symmetric, speech clear, moves all extremities though remains generally weak, particularly in the lower extremities Psych: OTHER: Normal affect Skin: OTHER: No rashes or significant petechia noted Data : 04/25/20 04:35 04/25/20 04:35 Other Labs: Laboratory Tests 04/25/20 04:35 AST 576 H ALT 338 H Albumin 2.6 L Micro: Microbiology 04/23/20 11:27 Urine Culture - Final Urine Catheterized Escherichia coli 04/23/20 10:55 Blood Culture - Preliminary Blood NEGATIVE TO DATE 04/23/20 11:00 Blood Culture - Preliminary Blood NEGATIVE TO DATE Tick panel still pending A&P Assessment and plan (1) Recurrent falls: Multifactorial from infection, renal failure, hyponatremia Status: Acute (2) Acute encephalopathy: Resolved, metabolic Status: Acute (3) Acute renal failure: On chronic kidney disease stage II. Closer to baseline Status: Acute Qualifiers: Acute renal failure type: with acute tubular necrosis Qualified Code(s): N17.0 - Acute kidney failure with tubular necrosis (4) Acute cystitis: In a patient with chronic cystitis. Urine culture with E. coli, sensitive to cephalosporins Status: Acute Qualifiers: Hematuria presence: without hematuria Qualified Code(s): N30.00 - Acute cystitis without hematuria (5) Tick-borne disease: Strongly suspected diagnosis given thrombocytopenia and transaminitis combined with report of previous tick bite Status: Acute (6) Gastro-esophageal reflux disease without esophagitis: Status: Chronic Additional A&P Information Changed to oral cefuroxime Continue doxycycline and follow-up tick titers Follow-up pending blood cultures Decrease IV fluids Will recommend staying off of ibuprofen after discharge for a while to allow her kidneys to heal Anticipate resumption of Diovan followed later by triamterene/hydrochlorothiazide as blood pressures and renal function improved Off of home Pepcid due to thrombocytopenia, calcium carbonate ordered in interim PT working with patient, currently using a walker, daughter states that she has 1 for her mother at home No pharmacological DVT prophylaxis secondary to thrombocytopenia, SCDs ordered Reviewed plans and findings with patient as well as later with her daughter, both given opportunity to ask questions Daughter has iPhone and would like to be able to communicate with her mother via video if arrangements for such can be made while she is here Supportive care otherwise Possible discharge tomorrow depending on how she does with therapy and overall clinically. Patient does live alone. She has agreed to allow neighbors and friends to check on her and assist her in her recovery. Patient's daughter lives about an hour away. Full code Attestations Medical Necessity Statement*: Requires continued fluids, increasing activity and monitoring for safety for disposition back home by herself versus alternative arrangements. Coding Level of Care Code Acute Collection Systems Modeler for g Fwd Diagnoses Recurrent falls R29.6 Acute encephalopathy G93.40 Acute renal failure N17.0 Acute renal failure type: with acute tubular necrosis Acute cystitis N30.00 Hematuria presence: without hematuria Tick-borne disease B88.2 Gastro-esophageal reflux disease without esophagitis K21.9
[2020-04-25 19:38] VITALS: BP 136/70; PULSE 66; RESP 18; TEMP 36.5; O2SAT 96
[2020-04-26] VITALS: BP 132/74; PULSE 68; RESP 17; TEMP 36.4; O2SAT 97
[2020-04-26 04:00] VITALS: BP 139/75; PULSE 66; RESP 18; TEMP 36.6; O2SAT 98
[2020-04-26 05:28] LABS: Basophils % 0.5 %; Eosinophils % 0.5 %; Hematocrit 37.9 % (37.0-47.0); Hemoglobin 11.9 g/dL (11.5-15.3); Lymphocytes # 2.7 10^3/uL (0.8-4.8); Lymphocytes % 60.8 %; Mean Corpuscular HGB Conc 31.4 g/dL (30.0-36.0); Mean Corpuscular Hemoglobin 28.7 pg (28.0-34.0); Mean Corpuscular Volume 91.5 fL (81-99); Mean Platelet Volume 10.9 fL (7.4-10.4); Monocytes # 0.5 10^3/uL (0.2-0.9); Monocytes % 10.8 %; Neutrophils # 1.2 10^3/uL (1.8-7.7); Nucleated Red Blood Cells % 0 %; Platelet Count 69 10^3/cmm (130-400); Red Blood Count 4.14 10^6/uL (4.1-5.3); Red Cell Distribution Width 14.2 % (12.1-15.1); White Blood Count 4.4 10^3/uL (4.0-10.0)
[2020-04-26] MEDS: sodium chloride 0.9% 1,000 ML 50 ML IV (05:29)
[2020-04-26 05:54] LABS: INR 0.95 (0.8-1.2)
[2020-04-26 06:11] LABS: Magnesium 1.7 mg/dL (1.7-2.3)
[2020-04-26 06:14] LABS: Creatine Phosphokinase 87 U/L (26-192)
[2020-04-26 06:15] LABS: Alanine Aminotransferase 273 U/L (0-33); Albumin Level 2.7 g/dL (3.5-5.2); Alkaline Phosphatase 167 IU/L (35-105); Anion Gap 16.7 (5-19); Aspartate Amino Transferase 375 U/L (0-32); Blood Urea Nitrogen 17 mg/dL (8-23); Calcium 8.1 mg/dL (8.5-10.5); Carbon Dioxide 22 mmol/L (22-29); Chloride 102 mmol/L (98-107); Globulin 2.4 g/dL (1.3-4.6); Glucose 87 mg/dL (65-115); Osmolality Calculated 280 mOsm/kg (285-295); Potassium 3.7 mmol/L (3.5-5.1); Sodium 137 mmol/L (136-145); Total Bilirubin 0.3 mg/dL (0.15-1.2); Total Protein 5.1 g/dL (6.6-8.7)
[2020-04-26 06:28] LABS: Neutrophils % 27.4 %
[2020-04-26 06:29] LABS: Slide Review Slide Review Perform
[2020-04-26 07:22] VITALS: BP 133/78; PULSE 58; RESP 18; TEMP 36.8; O2SAT 97
[2020-04-26] MEDS: gabapentin 100 mg Capsule PO (08:56)
[2020-04-26] MEDS: cefUROXime 250 mg Tablet PO (08:56)
[2020-04-26] MEDS: doxycycline 100 mg Tablet PO (08:56)
--- NOTE | 2020-04-26 10:32 | PC.SOCIAL ---
IMM Update Pg. 2 of IMM given and explained to patient, who verbalized understanding. Initialed, dated, and timed and placed in chart.
--- NOTE | 2020-04-26 11:06 | P.DS_ITS ---
Discharge Providers Date of Admission: 04/23/20 13:40 Date of Discharge: April 26, 2020 Attending Provider at Admission: Renetta Pate MD Attending Provider at Discharge: Renetta Pate MD Primary Care Provider: TEDDY Mckeon Diagnoses at Discharge Discharge Diagnosis (1) Recurrent falls: Status: Acute (2) Acute encephalopathy: Status: Resolved Problem details: Metabolic (3) Acute renal failure: Status: Resolved Qualifiers: Acute renal failure type: with acute tubular necrosis Qualified Code(s): N17.0 - Acute kidney failure with tubular necrosis (4) Acute cystitis: Status: Acute Qualifiers: Hematuria presence: without hematuria Qualified Code(s): N30.00 - Acute cystitis without hematuria (5) Tick-borne disease: Status: Acute (6) Gastro-esophageal reflux disease without esophagitis: Status: Chronic Reason for Visit Reason for Visit: weak/confused/can't keep food down Hospital Course Hospital Course: Mrs. Menendez presented to the emergency room after a second fall in less than 24 hours. EMS had to be called to help her up both times because she could not really do anything for herself. She initially refused to come to the emergency room but her daughter did not give her a choice the second time. She was confused and not acting like herself. She had started some Bactrim recently for probable acute on chronic cystitis which is a recurrent issue for her. The confusion and weakness were part of what made her think that she had a UTI but she admitted that she did not have the same degree of dysuria or urinary frequency as she usually does. She reported nausea and vomiting and general malaise and just profound weakness. She was found to have multiple laboratory abnormalities and admitted for further evaluation and treatment. She was started on Rocephin for coverage of urinary tract infection based on urinalysis. Also noted was elevated transaminases and thrombocytopenia. She reported she has seen several ticks on her this year including one that was difficult to remove behind her knee. She was empirically started on doxycycline and tick titers were sent. She received IV fluids and home medications were held including ARB and diuretic therapy as well as ibuprofen. She had evidence of acute renal failure in addition to acute metabolic encephalopathy. With treatment, patient's mental status and strength improved as did her laboratory studies. Urine culture ended up growing only 40-50,000 CFU's of E. coli. This could be due to a partially treated infection. Organism though was resistant to Bactrim which she had started as well as resistant to ampicillin and Unasyn. It was sensitive to Rocephin which she has been treated with while here. She was transitioned to oral cefuroxime to complete a course of treatment for acute cystitis. Disease was back prior to discharge and unremarkable. Other tick titers were still pending. Platelet count had increased from 53 at presentation to 69 at discharge. AST had improved from 812 to 375 and ALT had improved from 409 to 273. Clinically and based on laboratory studies, patient was felt to have a tickborne illness and will complete a 14-day treatment of doxycycline as well. She will need repeat laboratory studies to ensure continued improvement. Coagulation studies were never elevated alkaline phosphatase improved from 192 to 167. Bilirubin was normal range. Abdominal imaging was not done and she did not really complain of abdominal pain per se. She had an elevated procalcitonin at 3.8. Chest x-ray showed no nodule masses or effusions and no pneumonia or other acute changes. Twelve-lead EKG was unchanged from previous studies. Lipase was normal. Renal function improved from 42/2.4 to17/0.9 prior to discharge. I resumed triamterene hydrochlorothiazide prior to discharge. I have currently asked her to continue to hold the Diovan as well as the ibuprofen. This is not only due to renal failure but in terms of the ibuprofen due to the thrombocytopenia. She will need to follow-up with her primary care provider and get official results from pending tick titers. Reviewed this with both her and her daughter. Patient declined consideration for home health and she had actually improved enough that it was not felt necessary. Patient does live alone and currently not considering recommendations to have somebody stay with her or for her to stay with someone else for short period of time. I did provide information that she should not take more than 2 g of Tylenol currently in a 24-hour period of time secondary to elevated liver enzymes and not to take kcic-afi-[id number] ibuprofen due to the low platelets. With her that she needs to wear long sleeves and pants while on doxycycline and to stay out of the sun when she is able. Orders for CBC and repeat CMP have been placed for 1 week from now. Patient was awake and alert, oriented to person place and situation and able to ambulate without feeling dizzy or stumbling for short distances. Her daughter was able to get her a walker with brakes and a seat for home use and I encouraged patient to use this. Her lungs were clear and she had a regular rh ythm. She was felt stable for outpatient follow-up. Discharge Data Data Completed and Pending: Completed Studies During Hospitalization Category Date Time Status XR chest 1V arie ble [id number] Stat Exams 04/23/20 10:33 Completed Pending at discharge Category Date Time Status Blood Culture Sta t Lab 04/23/20 11:00 Results Tick Panel Routin e Lab 04/23/20 17:20 Results Labs from last 24 hours 04/26/20 04/26/20 04/26/20 04:27 04:27 04:27 WBC RBC Hgb Hct MCV MCH MCHC RDW Plt Count MPV Neut % (Auto) Lymph % (Auto) Armstrong % (Auto) Eos % (Auto) Baso % (Auto) Neut # (Auto) Lymph # (Auto) Armstrong # (Auto) Eos # (Auto) Baso # (Auto) Nucleated RBC % (a uto) Nucleated RBCs # PT 12.90 INR 0.95 Sodium Potassium Chloride Carbon Dioxide Anion Gap BUN Creatinine Glucose Calculated Osmolal ity Calcium Magnesium 1.7 Total Bilirubin AST ALT Alkaline Phosphata se Creatine Kinase 87 Total Protein Albumin Globulin Lyme Ab (Western B lot) 04/26/20 04/26/20 04/23/20 04:27 04:27 17:20 WBC 4.4 RBC 4.14 Hgb 11.9 Hct 37.9 MCV 91.5 MCH 28.7 MCHC 31.4 RDW 14.2 Plt Count 69 L MPV 10.9 H Neut % (Auto) 27.4 Lymph % (Auto) 60.8 Armstrong % (Auto) 10.8 Eos % (Auto) 0.5 Baso % (Auto) 0.5 Neut # (Auto) 1.2 L Lymph # (Auto) 2.7 Armstrong # (Auto) 0.5 Eos # (Auto) 0.0 Baso # (Auto) 0.0 Nucleated RBC % (a uto) 0 Nucleated RBCs # 0.0 PT INR Sodium 137 Potassium 3.7 Chloride 102 Carbon Dioxide 22 Anion Gap 16.7 BUN 17 Creatinine 0.9 Glucose 87 Calculated Osmolal ity 280 L Calcium 8.1 L Magnesium Total Bilirubin 0.3 AST 375 H ALT 273 H Alkaline Phosphata se 167 H Creatine Kinase Total Protein 5.1 L Albumin 2.7 L Globulin 2.4 Lyme Ab (Western B lot) <0.90 Vitals: Last Vital Signs Temp 98.3 F 04/26/20 07:22 Pulse 58 L 04/26/20 07:22 Resp 18 04/26/20 07:22 BP 133/78 04/26/20 07:22 Pulse Ox 97 04/26/20 07:22 Discharge Plan Discharge Patient Disposition: Home, Self-Care Condition: Stable Prescriptions: New cefuroxime axetil 250 mg Tablet 250 mg PO BID Qty: 10 RF: 0 doxycycline monohydrate 100 mg Tablet 100 mg PO BID Qty: 22 RF: 0 Continued cholecalciferol (vitamin D3) 4,000 unit capsule 4,000 unit PO DAILY RF: 0 cod liver oil Capsule 1 cap PO DAILY RF: 0 famotidine 20 mg tablet 20 mg PO DAILY Qty: 90 RF: 0 gabapentin 100 mg capsule 100 mg PO BID Qty: 180 RF: 0 triamterene-hydrochlorothiazid 37.5-25 mg tablet 1 tab PO QAM Qty: 90 RF: 0 Held ibuprofen 200 mg Capsule 600 mg PO BID PRN (Reason: Pain) RF: 0 Hold Instructions: Hold for at least 2 weeks secondary to renal failure. Acetaminophen or tylenol is a safe alternative if you do not exceed 2 grams per day (four 500mg tablets). valsartan [Diovan] 80 mg tablet 80 mg PO PRN PRN (Reason: Blood Pressure) RF: 0 Hold Instructions: Discuss resumption with PCP before taking Discharge Orders: Discharge Order (Routine); Ordered 04/26/20 Ordered By: Renetta Pate Other Ambulatory Orders: Complete Blood Count w/Auto (Routine) Timeframe: 1 Week Location: Determined by Patient Ordered By: Renetta Pate Comprehensive Metabolic Panel (Routine) Timeframe: 1 Week Location: Determined by Patient Ordered By: Renetta Pate Referrals: Natasha Sheffield FNP-C [Primary Care Provider] - 4-7 days (With labs which are ordered - CMP, CBC. Follow up tick titers and final on blood cultures. Faxed information to the Clinic and they will call you with a time and date for follow up appoinment.) Discharge Diet: Advance as tolerated Discharge Activity: Use walker/crutches as instructed Patient Instructions: Cefuroxime (By mouth), Doxycycline (By mouth), Tick Bite (DC), Hyponatremia (DC), Hedrick Spotted Fever Activity Restrictions/Additional Instructions: You presented to the emergency room with altered mental status, weakness with a couple of falls, difficulty keeping food down and general malaise. Intermittent fevers were also reported. Laboratory work-up in the emergency room revealed evidence of acute cystitis on top of chronic cystitis as well as evidence of acute renal failure with BUN/creatinine 42/2.4 at admission along with hyponatremia with a sodium of 122. You were given IV fluids and started on Rocephin. Urine culture was sent. Also identified where elevated transaminases and thrombocytopenia. These particular laboratory abnormalities are classically associated with tickborne illness in this area. Further discussion review revealed that she had had several ticks found on you this year including one that was very difficult to remove. Tick titers were collected and you were started on doxycycline. You improved significantly with hydration. Your renal function normalized. Sodium level corrected. Urine culture grew out 40-50,000 CFU's of E. coli that was sensitive to cephalosporins. While the colony count is low, decision was made to continue you on cefuroxime given your chronic urinary history. Your appetite improved and overall you are feeling better. Physical therapy evaluated you and felt it was safe for discharge home as you w ere ambulating around without need of assistance. Lyme disease was back negative however ehrlichiosis and Hedrick spotted fever tick titers are still pending at the time of discharge. Platelet count, which was as low as 53 at admission, was slowly trending upward and was at 69 on the day of discharge. Transaminases peaked at an AST of. 812 and an ALT of 409. On the day of discharge values were down to 375 and 273 respectively. Blood cultures were no growth to date with final still pending. Your triamterene/hydrochlorothiazide was held while you were here. You can restart it. Recommend holding ibuprofen for at least 2 weeks secondary to thrombocytopenia and recent acute kidney injury to give your kidneys a break. You will need to have laboratory studies rechecked before you can start taking ibuprofen or any other thtl-nco-jtisxzy NSAID again. You may take ygox-gyb-lfyzijd Tylenol for pain or fever but do not exceed four 500 mg tablets daily for the time being due to elevated liver enzymes should you have any recurrent fever, recurrent mental status symptoms, bleeding or recurrent nausea see your primary care provider or if serious symptoms return to the emergency room. It can take a few weeks and sometimes even longer to fully recover from a tickborne illness. Again at the time of discharge tickborne illness is a presumptive diagnosis based on clinical findi ngs and laboratory studies. Doxycycline has been prescribed as treatment for this. Take antibiotic as directed. You will need to stay out of direct sunlight for extended periods while you are on doxycycline. If you need to go outside you need to wear a hat and long sleeves, long pants. Follow-up plans are to see Natasha next week with repeat labs. I have included paperwork that reviews Hedrick Spotted Fever but you DO NOT at this time have this diagnosis. Tests are still pending. Nevertheless the instructions on this are still relevant. Discharge Date/Time: 04/26/20 12:25 Discharge Attestations Time Spent in Discharge Care*: greater than 30 min Quality Metrics Clinical Quality Measures During this hospital stay, did patient experience: None Coding Level of Care Code Acute [employer] for [employer] Fwd Diagnoses Recurrent falls R29.6 Acute encephalopathy G93.40 Acute renal failure N17.0 Acute renal failure type: with acute tubular necrosis Acute cystitis N30.00 Hematuria presence: without hematuria Tick-borne disease B88.2 Gastro-esophageal reflux disease without esophagitis K21.9
[2020-04-26 11:08] VITALS: BP 133/79; PULSE 67; RESP 16; TEMP 36.8; O2SAT 96
[2020-04-26 11:31] VITALS: BP 133/79; PULSE 67; RESP 16; TEMP 36.8; O2SAT 96
--- NOTE | 2020-04-26 12:03 | PC.NURSE ---
Iv D/c'd bleeding controlled with 2x2 and coban ,cath intact. discharge instruction given.
[2020-04-26 13:37] VITALS: BP 133/79; PULSE 67; RESP 16; TEMP 36.8; O2SAT 96
[2020-04-29 17:05] LABS: RMSF IGG NOT DETECTED; RMSF IGM NOT DETECTED
[2020-04-30 22:15] LABS: E. Chaffeensis AB IGG >=1:1024
== END 2020-04-26 12:25 | disposition home or self-care (01) | DRG 682 ==
LOC: ER 10:31 → MEDSURG 14:48
PROVIDERS: Family Medicine; Admitting Provider Hospitalist; PCP Nurse Practitioner; Visit Provider Hospitalist
DX: N17.0 Acute kidney failure with tubular necrosis (principal); G93.41 Metabolic encephalopathy; E87.1 Hypo-osmolality and hyponatremia; A94 Unspecified arthropod-borne viral fever; N30.00 Acute cystitis without hematuria; Z16.20 Resistance to unspecified antibiotic; G93.40 Encephalopathy, unspecified; K21.9 Gastro-esophageal reflux disease without esophagitis; R29.6 Repeated falls; D69.6 Thrombocytopenia, unspecified; B96.20 Unspecified Escherichia coli [E. coli] as the cause of diseases classified elsewhere; N18.2 Chronic kidney disease, stage 2 (mild); E78.2 Mixed hyperlipidemia; M54.16 Radiculopathy, lumbar region; Z85.3 Personal history of malignant neoplasm of breast; I12.9 Hypertensive chronic kidney disease with stage 1 through stage 4 chronic kidney disease, or unspecified chronic kidney disease; G89.29 Other chronic pain
CPT/HCPCS: 12345; 36415; 71045; 80048; 80053; 80076; 81001; 82550; 83605; 83690; 83735; 84100; 84145; 85007; 85025; 85610; 85730; 86618; 86666; 86757; 87040; 87077; 87086; 87186; 93005; 96375; 97161; 97530; 99283; J0696; J2405; J7030; J7040

== ENCOUNTER → 2020-05-02 10:32 | Outpatient (BNVA) | payer MEDICARE, OTHER, SELFPAY | PROVIDERS: PCP Nurse Practitioner; Visit Provider Nurse Practitioner | DX: B88.2 Other arthropod infestations (principal); D69.6 Thrombocytopenia, unspecified; E87.1 Hypo-osmolality and hyponatremia; N17.9 Acute kidney failure, unspecified; N30.00 Acute cystitis without hematuria | CPT/HCPCS: 80053; 81000; 85025 ==

== ENCOUNTER 2020-06-09 09:15 | Outpatient (CLI) | payer MEDICARE, OTHER, SELFPAY ==
[2020-06-09 10:10] LABS: Alanine Aminotransferase 51 U/L (0-33); Albumin Level 3.9 g/dL (3.5-5.2); Alkaline Phosphatase 102 IU/L (35-105); Blood Urea Nitrogen 18 mg/dL (8-23); Calcium 9.9 mg/dL (8.5-10.5); Carbon Dioxide 26 mmol/L (22-29); Chloride 99 mmol/L (98-107); Globulin 3.5 g/dL (1.3-4.6); Glucose 119 mg/dL (65-115); Osmolality Calculated 282 mOsm/kg (285-295); Sodium 137 mmol/L (136-145); Total Bilirubin 0.6 mg/dL (0.15-1.2); Total Protein 7.4 g/dL (6.6-8.7)
[2020-06-09 10:29] LABS: Anion Gap 15.9 (5-19); Aspartate Amino Transferase 64 U/L (0-32); Potassium 3.9 mmol/L (3.5-5.1)
== END 2020-06-09 09:16 | disposition home or self-care (01) ==
PROVIDERS: PCP Nurse Practitioner; Visit Provider Nurse Practitioner
DX: B88.2 Other arthropod infestations (principal)
CPT/HCPCS: 80053

== ENCOUNTER → 2020-06-10 09:34 | Outpatient (BNVA) | payer MEDICARE, OTHER, SELFPAY | PROVIDERS: PCP Nurse Practitioner; Visit Provider Nurse Practitioner | DX: E78.2 Mixed hyperlipidemia (principal); I10 Essential (primary) hypertension; N30.20 Other chronic cystitis without hematuria; R26.81 Unsteadiness on feet; R39.11 Hesitancy of micturition; M54.16 Radiculopathy, lumbar region | CPT/HCPCS: 80053; 81000 ==

== ENCOUNTER 2020-06-13 16:11 | Outpatient (CLI) | payer MEDICARE, OTHER, SELFPAY ==
--- NOTE | 2020-06-13 16:22 | XRR_ITS ---
PROCEDURE INFORMATION: Exam: XR Right Knee Exam date and time: 06/13/2020 4:50 PM Age: 75 years old Clinical indication: Right; Patient HX: Unsteady on feet. C/O bilat knee pain. Chronic lumbar radiculopathy; Additional info: Gait unsteady TECHNIQUE: Imaging protocol: XR Right knee. Views: 3 views. COMPARISON: No relevant prior studies available. FINDINGS: Bones/joints: Mild degenerative change. Contour irregularity about the patella, without acute bony injury. Soft tissues: Unremarkable. XR/XR knee RT 3V* [id number] IMPRESSION: Mild degenerative change.
--- NOTE | 2020-06-13 16:22 | XRR_ITS ---
PROCEDURE INFORMATION: Exam: XR Left Knee Exam date and time: 06/13/2020 4:54 PM Age: 75 years old Clinical indication: Left; Patient HX: Unsteady on feet. C/O chronic bilat knee pain. Chronic lumbar radiculopathy; Additional info: Unsteady gait TECHNIQUE: Imaging protocol: XR Left knee. Views: 3 views. COMPARISON: No relevant prior studies available. FINDINGS: Bones/joints: Degenerative change and small joint effusion. No acute bony injury or malalignment. Soft tissues: Unremarkable. Vasculature: Vascular calcification. XR/XR knee LT 3V* [id number] IMPRESSION: Degenerative change and small joint effusion.
--- NOTE | 2020-06-13 17:30 | MRR_ITS ---
PROCEDURE INFORMATION: Exam: MR Lumbar Spine Without Contrast. Exam date and time: 06/13/2020 5:30 PM Age: 75 years old Clinical indication: Low back pain; Patient HX: PT C/O chronic lbp. Injury as a child; Additional info: M54.16 radiculopathy, lumbar region TECHNIQUE: Imaging protocol: Multiplanar magnetic resonance images of the lumbar spine without intravenous contrast. COMPARISON: No relevant prior studies available. FINDINGS: Vertebrae: The lawnmower mechanic image shows multilevel degenerative changes of varying severity in the cervical and thoracic spine. There is mild spinal canal stenosis at C3-C4, C4-C5, and C5-C6. Vertebral body height is maintained. No subluxation. No bone marrow edema. No evidence for ligamentous injury. Spinal epidural space: No evidence for an epidural hematoma. Spinal cord: No signal abnormality in the visualized spinal cord, conus medullaris, or cauda equina. Spinal cord terminates at L1 vertebral body level. T11-T12: Sagittal images show a small left central disc herniation. T12-L1: Saddle images show mild bilateral facet hypertrophy. L1-L2: Small broadbased posterior disc bulge. Mild bilateral facet hypertrophy. Mild ligamentum flavum thickening. L2-L3: Small symmetric circumferential disc bulge. Mild bilateral facet hypertrophy. Moderate ligamentum flavum thickening. Mild bilateral foraminal stenosis. L3-L4: Small broadbased posterior disc bulge. Mild right facet hypertrophy. Severe left facet hypertrophy. Moderate ligamentum flavum thickening. Mild left foraminal stenosis. L4-L5: Small broadbased posterior disc bulge. Mild right facet hypertrophy. Moderate left facet hypertrophy. Ynox-pj-simyhfgp ligamentum flavum thickening. L5-S1: Small posterior disc osteophyte complex. Mild bilateral facet hypertrophy. Kidneys and ureters: Simple cysts in both right and left kidneys, some are partially visualized. Soft tissues: No paravertebral soft tissue abnormality. MR/MR lumbar spine wo con* [id number] IMPRESSION: 1. Multilevel degenerative changes in the lumbar spine. No significant spinal canal stenosis. Mild bilateral foraminal stenosis at L2-L3 and mild left foraminal stenosis at L3-L4. 2. The lawnmower mechanic image shows multilevel degenerative changes of varying severity in the cervical and thoracic spine. There is mild spinal canal stenosis at C3-C4, C4-C5, and C5-C6. 3. Incidental/nonacute findings are listed in the report.
== END 2020-06-13 16:12 | disposition home or self-care (01) ==
PROVIDERS: PCP Nurse Practitioner; Visit Provider Nurse Practitioner
DX: M54.5 Low back pain (principal); M54.16 Radiculopathy, lumbar region; M48.061 Spinal stenosis, lumbar region without neurogenic claudication; M48.02 Spinal stenosis, cervical region; M25.562 Pain in left knee; M25.561 Pain in right knee; M25.462 Effusion, left knee
CPT/HCPCS: 72148; 73562

== ENCOUNTER 2020-06-16 18:20 | Observation (INO) | payer MEDICARE, OTHER, SELFPAY ==
[2020-06-16 18:20] VITALS: BP 188/107; PULSE 69; RESP 18; TEMP 36.9; O2SAT 97
[2020-06-16 18:21] VITALS: BMI 34.4
--- NOTE | 2020-06-16 18:43 | CTR_ITS ---
PROCEDURE INFORMATION: Exam: CT Head Without Contrast Exam date and time: 06/16/2020 7:10 PM Age: 75 years old Clinical indication: Numbness / parasthesia and weakness, extremity; Bilateral; Left; Additional info: Left arm numbness, confusion TECHNIQUE: Imaging protocol: Computed tomography of the head without contrast. Radiation optimization: All CT scans at this facility use at least one of these dose optimization techniques: automated exposure control; mA and/or kV adjustment per patient size (includes targeted exams where dose is matched to clinical indication); or iterative reconstruction. COMPARISON: CT head wo con* [id number] 05/24/2019 12:19 PM RADIATION DOSE METRICS: Total DLP (mGy-cm): 861.35 FINDINGS: Brain: Evidence of mild small vessel ischemic disease. No visible acute intracranial pathologic process or hemorrhage. Ventricles: No ventriculomegaly. Bones/joints: Unremarkable. No acute fracture. Sinuses: Tiny amount of fluid within the left sphenoid air cell. No other evidence of active paranasal sinus disease. Mastoid air cells: Visualized mastoid air cells are well aerated. Vasculature: Cerebral arterial sclerosis. Soft tissues: Unremarkable. CT/CT head wo con* [id number] IMPRESSION: 1. No significant interval change since 05/24/2019. 2. Evidence of mild small vessel ischemic disease. 3. No visible acute intracranial pathologic process. 4. Cerebral arterial sclerosis. 5. Minimal sphenoid sinusitis. Radiation Dose CTDIVOL = (mGy): DLP = 861.35 (mGy-cm)
--- NOTE | 2020-06-16 18:43 | XRR_ITS ---
PROCEDURE INFORMATION: Exam: XR Chest, 1 View Exam date and time: 06/16/2020 7:26 PM Age: 75 years old Clinical indication: Other: Left arm numbness TECHNIQUE: Imaging protocol: XR of the chest Views: 1 view. COMPARISON: CR XR chest 1V portable [id number] 04/23/2020 11:37 AM FINDINGS: Lungs: Minor interstitial scarring or atelectasis lower lungs. No focal consolidation. Pleural space: No pleural effusion. Heart/Mediastinum: Stable heart size with left ventricular prominence. Vasculature: Tortuous thoracic aorta with calcification. Bones/joints: Unremarkable. XR/XR chest 1V portable [id number] IMPRESSION: Minor interstitial scarring or atelectasis lower lungs.
--- NOTE | 2020-06-16 18:44 | ECG_ITS ---
[facility] Test Date: 2020-06-16 Pat Name: Julisa Cunha Department: Room: Gender: Female [employer] Inspector: : 1945 Requested By: Milady Hamilton Order Number: [id number] Tito MD: Adrian Torrez M.D. Measurements Intervals [place] Rate: 70 P: 14 [place]: 137 QRS: 44 QRSD: 118 T: 0 QT: 388 QTc: 421 Interpretive Statements SINUS RHYTHM WITH OCCASIONAL PREMATURE COMPLEXES INFERIOR MYOCARDIAL INFARCTION , PROBABLY OLD [40+ ms Q WAVE AND/OR ST/T ABNORMALITY IN II/aVF] PROBABLE ANTEROLATERAL MYOCARDIAL INFARCTION , OF INDETERMINATE AGE [35 ms Q WAVE IN I/aVL/V3-V6] Compared to ECG 04/23/2020 11:17:51 No significant changes Electronically Signed On 06-16-2020 20:34:18 CDT by Adrian Torrez M.D. [id number]
--- NOTE | 2020-06-16 19:11 | PC.NURSE ---
Patient to CT via stretcher
--- NOTE | 2020-06-16 19:17 | PC.NURSE ---
ASSUMED CARE OF PT FROM JONH NAVA RN AT THIS TIME.
[2020-06-16 19:19] LABS: Basophils % 0.5 %; Eosinophils # 0.2 10^3/uL (0.0-0.8); Eosinophils % 3.2 %; Hematocrit 42.2 % (37.0-47.0); Hemoglobin 13.3 g/dL (11.5-15.3); Lymphocytes # 2.8 10^3/uL (0.8-4.8); Mean Corpuscular HGB Conc 31.5 g/dL (30.0-36.0); Mean Corpuscular Hemoglobin 28.4 pg (28.0-34.0); Mean Platelet Volume 11.5 fL (7.4-10.4); Monocytes # 0.5 10^3/uL (0.2-0.9); Neutrophils # 2.95 10^3/uL (1.8-7.7); Neutrophils % 45.1 %; Nucleated Red Blood Cells % 0 %; Platelet Count 203 10^3/cmm (130-400); Red Blood Count 4.69 10^6/uL (4.1-5.3); Red Cell Distribution Width 12.8 % (12.1-15.1); White Blood Count 6.5 10^3/uL (4.0-10.0)
[2020-06-16 19:32] LABS: INR 0.87 (0.8-1.2)
[2020-06-16 19:37] LABS: Lactate (Lactic Acid level) 1.2 mmol/L (0.5-2.2)
[2020-06-16 19:46] LABS: Alanine Aminotransferase 48 U/L (0-33); Albumin Level 4.6 g/dL (3.5-5.2); Alkaline Phosphatase 114 IU/L (35-105); Aspartate Amino Transferase 55 U/L (0-32); Blood Urea Nitrogen 17 mg/dL (8-23); Calcium 10.5 mg/dL (8.5-10.5); Carbon Dioxide 27 mmol/L (22-29); Chloride 95 mmol/L (98-107); Globulin 3.2 g/dL (1.3-4.6); Glucose 96 mg/dL (65-115); Osmolality Calculated 278 mOsm/kg (285-295); Sodium 136 mmol/L (136-145); Total Bilirubin 0.5 mg/dL (0.15-1.2); Total Protein 7.8 g/dL (6.6-8.7)
[2020-06-16 19:47] VITALS: BP 165/82; PULSE 69; RESP 16; O2SAT 93
[2020-06-16 19:49] LABS: Troponin(5th) Baseline 19 ng/L (0-10)
--- NOTE | 2020-06-16 19:49 | ED_ITS ---
HPI - Neuro Symptoms/Deficit General: Chief Complaint: Neuro Symptoms/Deficit Stated Complaint: NUMBNESS LEFT HAND Time Seen by Provider: 06/16/20 18:23 History of Present Illness: HPI Narrative: This patient is a 75-year-old female presenting today with numbness of her left arm. She said it started about 4:00 in the afternoon. It resolved by the time EMS arrived. After she got here to the ER it came back a little bit but is now going away again. She is not sure whether she might had some numbness in her face at the same time and she is not sure if she did have the numbness if it was on both sides or just one side. She does say that she also had some confusion at the same time and has been having some episodes of confusion off and on for a few weeks. She was admitted to the hospital in the middle of May with ehrlichiosis. She says that she is finished with the antibiotics that were prescribed. She has never had a prior stroke. Onset (ago): hour(s) (2) Location: left arm and other ([place] a little confused) History of same: No Severity: moderate Quality: numb Relieving factors: time Context: sudden onset On Anticoagulants: No Associated symptoms: Deny chest pain, headache(s), malaise, nausea or vomiting Review of Systems General: Reports: 10 or more systems reviewed and unremarkable except in HPI and below Const: Denies: fever(s), chills, fatigue or malaise Eyes: Denies: change in vision ENMT: Denies: odynophagia Card: Denies: chest pain or swelling of feet/ankles Resp: Denies: dyspnea, productive cough or non-productive cough GI: Denies: abdominal pain, nausea or vomiting : Denies: flank pain or difficulty voiding Musc: Denies: neck pain or back pain Skin/Breast: Denies: rash Neuro: Reports: numbness in extremities and confusion; Denies: headache(s) or weakness in extremities Aleksandr/Lymph: Denies: easy bruising or easy bleeding [facility] ED PFSH: Medical History (Updated 06/18/20 @ 13:47 by [place] Almodovar MD) Chronic cystitis Chronic left lumbar radiculopathy Ehrlichiosis Gastro-esophageal reflux disease without esophagitis Gross hematuria History of cancer of left breast December 2014 HTN, goal below 130/80 Mixed hyperlipidemia Refusal of statin medication by patient Vitamin D insufficiency Surgical History H/O breast biopsy History of bilateral cataract extraction S/P lymph node biopsy Status post hip replacement Family History Family/Other CAD (coronary artery disease) Stroke Hypertension Cancer Breast Social History Smoking and tobacco status: never smoked Second hand smoke exposure: No Smoking risk assessment/counseling performed?: No Alcohol intake: never Desire information about alcohol rehabilitation?: No Counseling given: No Desire information about substance/drug rehabilitation?: No Counseling given: No Adopted: No Caregiver/support person: No Lives independently: Yes Household members: none Housing: House Marital status: Number of children: 1 service: No Current occupational status: retired Pets and animals: No History of recent travel: No Current gender identity: Female Physical Exam Const: COMMON NORMALS: no acute distress, patient oriented x3, no limitations and alert GENERAL APPEARANCE: cooperative and comfortable HENMT: HEAD & SCALP: normal to inspection FACE & SINUS: normal facial exam Eye: GENERAL EYE: appearance normal, both eyes and all related structures Neck/C-Spine: COMMON NORMALS: supple, no meningeal signs and no JVD Chest: COMMONS NORMALS: normal inspection of the chest Resp: COMMON NORMALS: normal respiratory effort, No use of accessory muscles and clear to auscultation bilaterally AUSCULTATION: clear to auscultation bilaterally Cardio: COMMON NORMALS: no JVD, regular rate, regular rhythm and No murmurs present (Cardio) RATE: regular rate RHYTHM: regular rhythm GI: COMMON NORMALS: Normal to inspection, nondistended, normoactive bowel sounds present, Soft to palpation and non-tender INSPECTION: Yes normal to inspection AUSCULTATION: Yes normoactive bowel sounds PALPATION: Yes Soft to palpation Back/Pelvis: COMMON NORMALS: thoracic and lumbar spine normal to inspection Extremity: COMMON NORMALS: normal to inspection Neuro: COMMON NORMALS: patient oriented x3, moves all extremities, no focal motor deficits and no sensory deficits noted SENSORIUM/ORIENTATION: Yes alert MENINGEAL SIGNS: Yes no meningeal signs Psych: COMMON NORMALS: mental status grossly normal, cooperative and normal affect Skin: COMMON NORMALS: no rashes or lesions noted and turgor normal GENERAL SKIN EXAM: no rashes or lesions noted and turgor normal Course ED course: Patient had a negative work-up in the ED however given her persistent and perhaps even worsening confusion she will be admitted to the hospitalist for further evaluation. Vital Signs: Vital signs: Vital Signs Temperature 97.8 F 06/18/20 17:40 Pulse Rate 60 06/18/20 17:40 Respiratory Rate 18 06/18/20 17:40 Blood Pressure 136/71 06/18/20 17:40 Pulse Oximetry 95 06/18/20 17:40 MDM - Neuro Symptoms/Deficit Lab Data: Labs: Lab Results 06/16/20 06/16/20 06/16/20 Range/Units 17:53 17:53 17:53 WBC 6.5 (4.0-10.0) 10^3/ uL RBC 4.69 (4.1-5.3) 10^6/u L Hgb 13.3 (11.5-15.3) g/dL Hct 42.2 (37.0-47.0) % MCV 90.0 (81-99) fL MCH 28.4 (28.0-34.0) pg MCHC 31.5 (30.0-36.0) g/dL RDW 12.8 (12.1-15.1) % Plt Count 203 (130-400) 10^3/c mm MPV 11.5 H (7.4-10.4) fL Neut % (Auto) 45.1 % Lymph % (Auto) 43.0 % [place] % (Auto) 8.0 % Eos % (Auto) 3.2 % Baso % (Auto) 0.5 % Neut # (Auto) 2.95 (1.8-7.7) 10^3/u L Lymph # (Auto) 2.8 (0.8-4.8) 10^3/u L [place] # (Auto) 0.5 (0.2-0.9) 10^3/u L Eos # (Auto) 0.2 (0.0-0.8) 10^3/u L Baso # (Auto) 0.0 (0.0-0.1) 10^3/u L Nucleated RBC % (a uto) 0 % Nucleated RBCs # 0.0 /100WBC ESR 22 H (0-15) mm/hr PT (12.1-14.9) SECO NDS INR (0.8-1.2) Sodium 136 (136-145) mmol/L Potassium 3.0 L (3.5-5.1) mmol/L Chloride 95 L (98-107) mmol/L Carbon Dioxide 27 (22-29) mmol/L Anion Gap 17.0 (5-19) BUN 17 (8-23) mg/dL Creatinine 1.0 H (0.5-0.9) mg/dL GFR Calculation Not Reportable Glucose 96 (65-115) mg/dL Calculated Osmolal ity 278 L (285-295) mOsm/k g Lactate (0.5-2.2) mmol/L Calcium 10.5 (8.5-10.5) mg/dL Total Bilirubin 0.5 (0.15-1.2) mg/dL AST 55 H (0-32) U/L ALT 48 H (0-33) U/L Alkaline Phosphata se 114 H (35-105) IU/L Troponin T Baselin e (0-10) ng/L Troponin T 120 Min [place] (0-10) ng/L Delta Troponin T (0-10) ABS# Total Protein 7.8 (6.6-8.7) g/dL Albumin 4.6 (3.5-5.2) g/dL Globulin 3.2 (1.3-4.6) g/dL Urine Color (Yellow) Urine Appearance (CLEAR) Urine pH (5-7) Ur Specific Gravit y (1.005-1.030) Urine Protein (Negative) Urine Glucose (UA) (Normal) Urine Ketones (Negative) Urine Blood (Negative) Urine Nitrate (Negative) Urine Bilirubin (NEGATIVE) Urine Urobilinogen (Negative) mg/dL Ur Leukocyte [place] ase (Negative) Urine RBC (0-2) /hpf Urine WBC (0-5) /hpf Ur Squamous Epith Cells (0-5) Amorphous Sediment Urine Bacteria (NONE) 06/16/20 06/16/20 06/16/20 Range/Units 17:53 17:53 17:53 WBC (4.0-10.0) 10^3/ uL RBC (4.1-5.3) 10^6/u L Hgb (11.5-15.3) g/dL Hct (37.0-47.0) % MCV (81-99) fL MCH (28.0-34.0) pg MCHC (30.0-36.0) g/dL RDW (12.1-15.1) % Plt Count (130-400) 10^3/c mm MPV (7.4-10.4) fL Neut % (Auto) % Lymph % (Auto) % [place] % (Auto) % Eos % (Auto) % Baso % (Auto) % Neut # (Auto) (1.8-7.7) 10^3/u L Lymph # (Auto) (0.8-4.8) 10^3/u L [place] # (Auto) (0.2-0.9) 10^3/u L Eos # (Auto) (0.0-0.8) 10^3/u L Baso # (Auto) (0.0-0.1) 10^3/u L Nucleated RBC % (a uto) % Nucleated RBCs # /100WBC ESR (0-15) mm/hr PT 12.10 (12.1-14.9) SECO NDS INR 0.87 (0.8-1.2) Sodium (136-145) mmol/L Potassium (3.5-5.1) mmol/L Chloride (98-107) mmol/L Carbon Dioxide (22-29) mmol/L Anion Gap (5-19) BUN (8-23) mg/dL Creatinine (0.5-0.9) mg/dL GFR Calculation Glucose (65-115) mg/dL Calculated Osmolal ity (285-295) mOsm/k g Lactate 1.2 (0.5-2.2) mmol/L Calcium (8.5-10.5) mg/dL Total Bilirubin (0.15-1.2) mg/dL AST (0-32) U/L ALT (0-33) U/L Alkaline Phosphata se (35-105) IU/L Troponin T Baselin e 19 H (0-10) ng/L Troponin T 120 Min [place] (0-10) ng/L Delta Troponin T (0-10) ABS# Total Protein (6.6-8.7) g/dL Albumin (3.5-5.2) g/dL Globulin (1.3-4.6) g/dL Urine Color (Yellow) Urine Appearance (CLEAR) Urine pH (5-7) Ur Specific Gravit y (1.005-1.030) Urine Protein (Negative) Urine Glucose (UA) (Normal) Urine Ketones (Negative) Urine Blood (Negative) Urine Nitrate (Negative) Urine Bilirubin (NEGATIVE) Urine Urobilinogen (Negative) mg/dL Ur Leukocyte [place] ase (Negative) Urine RBC (0-2) /hpf Urine WBC (0-5) /hpf Ur Squamous Epith Cells (0-5) Amorphous Sediment Urine Bacteria (NONE) 06/16/20 06/16/20 Range/Units 21:10 21:51 WBC (4.0-10.0) 10^3/ uL RBC (4.1-5.3) 10^6/u L Hgb (11.5-15.3) g/dL Hct (37.0-47.0) % MCV (81-99) fL MCH (28.0-34.0) pg MCHC (30.0-36.0) g/dL RDW (12.1-15.1) % Plt Count (130-400) 10^3/c mm MPV (7.4-10.4) fL Neut % (Auto) % Lymph % (Auto) % [place] % (Auto) % Eos % (Auto) % Baso % (Auto) % Neut # (Auto) (1.8-7.7) 10^3/u L Lymph # (Auto) (0.8-4.8) 10^3/u L [place] # (Auto) (0.2-0.9) 10^3/u L Eos # (Auto) (0.0-0.8) 10^3/u L Baso # (Auto) (0.0-0.1) 10^3/u L Nucleated RBC % (a uto) % Nucleated RBCs # /100WBC ESR (0-15) mm/hr PT (12.1-14.9) SECO NDS INR (0.8-1.2) Sodium (136-145) mmol/L Potassium (3.5-5.1) mmol/L Chloride (98-107) mmol/L Carbon Dioxide (22-29) mmol/L Anion Gap (5-19) BUN (8-23) mg/dL Creatinine (0.5-0.9) mg/dL GFR Calculation Glucose (65-115) mg/dL Calculated Osmolal ity (285-295) mOsm/k g Lactate (0.5-2.2) mmol/L Calcium (8.5-10.5) mg/dL Total Bilirubin (0.15-1.2) mg/dL AST (0-32) U/L ALT (0-33) U/L Alkaline Phosphata se (35-105) IU/L Troponin T Baselin e (0-10) ng/L Troponin T 120 Min [place] 20.03 H (0-10) ng/L Delta Troponin T 1.03 (0-10) ABS# Total Protein (6.6-8.7) g/dL Albumin (3.5-5.2) g/dL Globulin (1.3-4.6) g/dL Urine Color Yellow (Yellow) Urine Appearance Clear (CLEAR) Urine pH 7 (5-7) Ur Specific Gravit y 1.010 (1.005-1.030) Urine Protein Neg (Negative) Urine Glucose (UA) Norm (Normal) Urine Ketones Negative (Negative) Urine Blood Neg (Negative) Urine Nitrate Negative (Negative) Urine Bilirubin Neg (NEGATIVE) Urine Urobilinogen Norm (Negative) mg/dL Ur Leukocyte [place] ase 1+ H (Negative) Urine RBC Rare (0-2) /hpf Urine WBC 0-4 H (0-5) /hpf Ur Squamous Epith Cells 0-4 H (0-5) Amorphous Sediment Not Reportable Urine Bacteria Trace (NONE) Discharge Plan Discharge Admit Provider: Axel Zacarias Condition: Stable Discharge Orders: Discharge Order (Routine); Ordered 06/18/20 Ordered By: [place] Almodovar Discharge Diet: Cardiac Discharge Activity: Resume usual activity Discharge Date/Time: 06/16/20 23:44 Coding Level of Care Code ED Yarn Polishing Machine Operator for Chg Fwd Exam Comprehensive
[2020-06-16 20:00] VITALS: BP 143/72; PULSE 64; RESP 16; O2SAT 95
[2020-06-16 20:28] LABS: Erythrocyte Sedimentation Rate 22 mm/hr (0-15)
--- NOTE | 2020-06-16 20:44 | ECG_ITS ---
[facility] Test Date: 2020-06-16 Pat Name: Julisa Cunha Department: Room: Gender: Female Pre Parole Counseling Aide: : 1945 Requested By: Milady Hamilton Order Number: [id number] Tito MD: Marya Wallace M.D. Measurements Intervals [place] Rate: 66 P: 53 OR: 157 QRS: 46 QRSD: 118 T: 4 QT: 399 QTc: 418 Interpretive Statements SINUS RHYTHM WITH SINUS ARRHYTHMIA PROBABLE LATERAL MYOCARDIAL INFARCTION , PROBABLY OLD [35 ms Q WAVE IN I/aVL/V5/V6] INFERIOR MYOCARDIAL INFARCTION , PROBABLY OLD Compared to ECG 06/16/2020 18:53:06 No significant changes Electronically Signed On 06-17-2020 12:56:44 CDT by Marya Wallace M.D. [id number]
--- NOTE | 2020-06-16 21:42 | PC.NURSE ---
EKG done at 2133 and shown to ER doctor
[2020-06-16 21:52] LABS: Troponin 5 2HR 20.03 ng/L (0-10); Troponin 5 2HR Delta 1.03 ABS# (0-10)
[2020-06-16 22:00] VITALS: BP 144/73; PULSE 63; RESP 18; O2SAT 99
[2020-06-16 22:23] LABS: Add Urine Microscopic? YES; Bacteria Urine TRACE; Bilirubin Urine Neg (NEGATIVE); Blood Urine Neg (Negative); Glucose Urine UA Norm (Normal); Ketones Urine Negative (Negative); Leukocyte Esterase Urine 1+ (Negative); Nitrate Urine Negative (Negative); Protein Urine Neg (Negative); RBC Urine RARE /hpf (0-2); Squamous Epithelial Cell Urine 0-4 (0-5); Urine Appearance Clear (CLEAR); Urobilinogen Urine Norm (Negative); WBC Urine 0-4 /hpf (0-5); pH Urine 7 (5-7)
[2020-06-16 22:58] LABS: Urine Color Yellow (Yellow)
--- NOTE | 2020-06-16 23:25 | PM.HP ---
Providers/Chief Complaint Admitting Physician: Axel Zacarias MD Primary Care Provider: Natasha Sheffield, RESIDENT DOCTOR-C Chief Complaint: NUMBNESS LEFT HAND History of Present Illness Julisa Cunha is a 75 year old female presenting with left arm numbness. Symptoms started today at 2 PM and involve the entire hand. She reports that since her tickborne illness she has had some intermittent confusion. Daughter reports it is been a lot worse today. She states she has trouble grasping what to do. Patient reports intermittent word finding difficulties. May have had some facial numbness today as well. No slurred speech. Does not believe she had any decreased strength. No recent trauma/head injury or fall. No history of CVA. No exposure to Covid, cough. Has had a headache today, no neck stiffness or pain. No recent significant changes in medicine. Had some confusion with ehrlichiosis which was diagnosed in April for which she received doxycycline. Review of Systems General: Reports: 10 or more systems reviewed and unremarkable except in HPI and below Const: Denies: fever(s) or chills Eyes: Denies: change in vision ENMT: Denies: throat pain Card: Denies: chest pain Resp: Denies: dyspnea GI: Denies: abdominal pain : Denies: flank pain Musc: Denies: neck pain Skin/Breast: Denies: rash Neuro: Reports: headache(s), numbness in extremities and confusion Psych: Denies: anxiety or depression Endo: Denies: polyuria Aleksandr/Lymph: Denies: easy bruising All/Imm: Denies: urticaria Medications/Allergies Home Medications Medication Instructions Recorded Confirmed Last Taken Type cholecalciferol (vitamin D3) 100 3,000 unit PO DAILY 01/07/20 06/16/20 06/16/20 History mcg (4,000 unit) capsule cod liver oil 1 cap PO DAILY 01/07/20 06/16/20 06/16/20 History ibuprofen 200 - 800 mg PO PRN 04/23/20 06/16/20 04/22/20 History gabapentin 100 mg capsule 100 mg PO BID #180 cap 05/07/20 06/16/20 06/16/20 07:30 Rx triamterene 37.5 1 tab PO QAM #90 tab 05/07/20 06/16/20 06/16/20 Rx mg-hydrochlorothiazide 25 mg tablet Flomax 0.4 mg PO BEDTIME 06/16/20 06/16/20 06/15/20 History famotidine 10 mg PO DAILY 06/16/20 06/16/20 06/16/20 History naproxen sodium [Aleve] 220 mg PO PRN 06/16/20 06/16/20 Unknown History Allergies Allergy/AdvReac Type Severity Reaction Status Date / Time benzoin Allergy Unknown Unknown Verified 12/20/19 13:07 lisinopril Allergy dizziness, Verified 12/20/19 13:07 head pain PFSH Acute PFSH: Medical History (Updated 06/17/20 @ 00:21 by Axel Zacarias MD) Chronic cystitis Chronic left lumbar radiculopathy Ehrlichiosis Gastro-esophageal reflux disease without esophagitis Gross hematuria History of cancer of left breast December 2014 HTN, goal below 130/80 Mixed hyperlipidemia Refusal of statin medication by patient Vitamin D insufficiency Surgical History H/O breast biopsy History of bilateral cataract extraction S/P lymph node biopsy Status post hip replacement Family History Family/Other CAD (coronary artery disease) Stroke Hypertension Cancer Breast Social History Smoking and tobacco status: never smoked Second hand smoke exposure: No Smoking risk assessment/counseling performed?: No Alcohol intake: never Desire information about alcohol rehabilitation?: No Counseling given: No Desire information about substance/drug rehabilitation?: No Counseling given: No Adopted: No Caregiver/support person: No Lives independently: Yes Household members: none Housing: House Marital status: Number of children: 1 service: No Current occupational status: retired Pets and animals: No History of recent travel: No Current gender identity: Female Vitals/I&O/Wt Last Vital Signs Temp 98.5 F 06/16/20 18:20 Pulse 63 06/16/20 22:00 Resp 18 06/16/20 22:00 BP 144/73 06/16/20 22:00 Pulse Ox 99 06/16/20 22:00 Weight last 48 hrs Weight 93.894 kg Physical Exam Narrative: EXAM NARRATIVE: General exam no apparent distress, speech without slurring but somewhat pressured. HEENT: Pupils equally round. Oropharynx clear. Tongue midline. Neck is supple no lymphadenopathy or thyromegaly Cardiovascular regular rate and rhythm without murmur, no S3 or S4 Lungs clear no wheezing or crackles Abdomen is soft with positive bowel sounds. No obvious organomegaly was deferred Extremities no cyanosis clubbing or edema, cap refill brisk Skin no rash Neurologic: Intermittently appears to have trouble understanding my directions, cooperating with exam. May have decreased vision left eye lateral field but no visual field defect detected in the right eye. Seems to have some neglect in the left hand, and difficulty with cerebellar function testing in this hand although I did not detect a drift. I did not ambulate her. Strength in both upper extremities and lower extremities was intact, although I had to isolate the left hand to do testing. Data : 06/16/20 17:53 06/16/20 17:53 Other data: Liver function test slightly elevated Troponin elevated at 19 with repeat at 120 minutes at 20 Urinalysis 0-4 reds, 0-[address] head small vessel disease Chest x-ray no infiltrate, calcification of the aortic arch EKG demonstrates sinus rhythm, normal axis, Q waves inferiorly A&P Assessment and plan (1) Confusion: Possible CVA. No evidence of infection. No evidence for recurrence of tickborne illness as appropriately treated with doxycycline for ehrlichiosis Note that it appears she received Ativan and morphine in the ER prior to my assessment. Status: Acute (2) Left upper extremity numbness: Possible CVA. Has left-sided neglect. Observation to telemetry Echocardiogram Carotid duplex MRI head, without contrast Aspirin 81 mg daily. Patient does not want to take full dose secondary to stomach problems she has had in the past with this. Initiate statin Check lipid profile, TSH Hydration Hold diuretics/blood pressure medication. Allow for permissive hypertension Status: Acute (3) Hypokalemia: Supplement Check magnesium level Status: Acute Additional A&P Information History of ehrlichiosis History of hypertension. Permissive hypertension currently. History of hyperlipidemia. Starting statin secondary to concern for TIA/CVA History of breast cancer, with no evidence of recurrence Multiple other medical problems as outlined by past medical history Full code Lovenox for DVT prophylaxis Attestations Medical Necessity Statement*: Will need less than 2 midnight stay for evaluation of CVA symptoms. Coding Level of Care Code Acute Multiplex Operator for Chg Fwd Diagnoses Confusion R41.0 Left upper extremity numbness R20.0 Hypokalemia E87.6
[2020-06-16 23:41] VITALS: BP 160/71; PULSE 74; RESP 20; O2SAT 95
[2020-06-17] VITALS (9 sets, daily range): BP systolic 126–185; BP diastolic 71–83; PULSE 54–72; RESP 14–20; TEMP 36.6–37.6; O2SAT 91–98
--- NOTE | 2020-06-17 00:22 | USCV_ITS ---
Julisa Cunha Age: 75 Gender: F : 1945 Exam Date: 06/17/2020 06:50 Ordering Phys: Axel Zacarias MD Technologist: Beena Barbour [place] [facility] [place]: CVA WITH LT SIDED SYMPTOMS Risk Factors: Unknown Previous Vascular Surgery: None Right Brachial BP: / Left Brachial BP: / Right Left Velocity (cm/s) Spectral Plaque Velocity (cm/s) Spectral Plaque Syst/Diast Broadening Syst/Diast Broadening 112.50/19.80 Prox CCA 153.60/ 24.80 95.90/ 16.50 Mid CCA 99.10 / 23.10 53.60/ 12.40 Hetro Distal CCA 112.30/ 16.50 Hetro 91.70/ 21.70 Hetro Prox ICA 125.90/ 27.00 Hetro 87.90/ 22.00 Mid ICA 132.10/ 24.90 78.40/ 17.30 Distal ICA 92.30 / 20.30 80.20 ECA 95.60 0.96 ICA/CCA 1.33 Antegrade Vertebral Antegrade 56.40/ 16.10 cm/s 44.60/ 11.70 cm/s Tri Subclavian Tri 146.0 108.5 0 0 FINDINGS Comparison: none available. No significant elevation of systolic or diastolic velocities. Waveforms are normal. Mild bilateral scattered calcified plaque and intimal thickening throughout the common carotid arteries and extending through the bifurcation. CONCLUSIONS Bilateral ICA stenosis less than 50%. Mild carotid atherosclerosis. Dr. Mile Mon DO (Electronically Signed) Final Date: 17 June 2020 14:09 S
--- NOTE | 2020-06-17 00:22 | USCV_ITS ---
Julisa Cunha Age: 75 Gender: F : 1945 Exam Date: 06/17/2020 06:27 Ordering Phys: Axel Zacarias MD Technologist: Beena Barbour Exam Location: [facility] [place] Indication: CVA WITH LT SIDED SYMPTOMS BP: 154 / 82 HR: 68 Rhythm: Sinus Technical Quality: Adequate MEASUREMENTS (Male / Female) Normal Values 2D ECHO LV Diastolic Diameter PLAX 4.5 cm 4.2 - 5.9 / 3.9 - 5.3 cm LV Systolic Diameter PLAX 3.8 cm LV Chamber Size 4.2 cm IVS Diastolic Thickness 1.4 cm 0.6 - 1.0 / 0.6 - 0.9 cm IVS Systolic Thickness 2.1 cm LVPW Diastolic Thickness 1.5 cm 0.6 - 1.0 / 0.6 - 0.9 cm LVPW Systolic Thickness 1.9 cm RV Chamber Size 2.8 cm LVOT Diameter 2.1 cm LV Ejection Fraction 2D Teich 34.7 % LV Ejection Fraction MOD 2C 70.2 % LV Ejection Fraction 2C AL 70.3 % LA Diameter 3.6 cm LA Width 3.0 cm LA Height 4.3 cm RA Width 2.9 cm RA Height 4.5 cm Aorta at Sinotubular Diameter 2.9 cm M-MODE LV Diastolic Diameter MM 5.0 cm 4.2 - 5.9 / 3.9 - 5.3 cm LV Systolic Diameter MM 2.9 cm LV Ejection Fraction MM Teich 72.4 % IVS Diastolic Thickness MM 1.1 cm 0.6 - 1.0 / 0.6 - 0.9 cm IVS Systolic Thickness MM 1.6 cm LVPW Diastolic Thickness MM 1.4 cm 0.6 - 1.0 / 0.6 - 0.9 cm LVPW Systolic Thickness MM 1.8 cm RV Diastolic Diameter MM 1.4 cm Aortic Annulus Diameter 2.9 cm LA Ao Ratio MM 1.2 MV E Point Septal Separation 0.3 cm DOPPLER AV Peak Velocity 187.0 cm/s LVOT Peak Velocity 132.0 cm/s AV Area Cont Eq vti 2.8 cm squared AV Area Cont Eq pk 2.4 cm squared MV Area PHT 3.7 cm squared Mitral E to A Ratio 0.8 MV E' Velocity 8.0 cm/s Mitral E to MV E' Ratio 10.1 Mitral E to LV E' Lateral Ratio 9.6 Mitral E to LV E' Septal Ratio 10.6 TR Peak Velocity 148.5 cm/s TR Peak Gradient 8.8 mmHg TR Mean Velocity 121.8 cm/s TR Mean Gradient 6.2 mmHg TR Velocity Time Integral 38.1 cm TV Peak E Velocity 64.0 cm/s Right Atrial Pressure 3.0 mmHg Pulmonary Artery Systolic Pressu 11.8 mmHg PV Peak Velocity 82.0 cm/s RV Acceleration Time 0.2 s RV Ejection Time 0.4 s RV AcT/ET 0.4 FINDINGS Left Ventricle Normal left ventricular size and systolic function with EF of 55-60%. Mild LVH is noted. No regional wall motion abnormalities. Grade 1 diastolic dysfunction is noted. Right Ventricle The right ventricle is mildly dilated and has normal function. Right Atrium The right atrium is normal in size. Left Atrium The left atrium is normal in size. Mitral Valve Structurally normal mitral valve without significant stenosis or prolapse. There is no mitral regurgitation. Aortic Valve Structurally normal aortic valve without significant sclerosis or stenosis. There is no aortic regurgitation. Tricuspid Valve Structurally normal tricuspid valve without significant stenosis or regurgitation. Insufficient TR jet to calculate RVSP. Pulmonic Valve Pulmonic valve is not visualized adequately. Pericardium Normal pericardium without effusion. Aorta Normal ascending aorta dimension. CONCLUSIONS Normal systolic function with EF of 55 to 60%. Grade 1 diastolic dysfunction Nikos Dumont MD (Electronically Signed) Final Date: 17 June 2020 08:10 S
--- NOTE | 2020-06-17 00:39 | PC.NURSE ---
Assessment: Decreased vision left eye lateral field but no visual field defect detected in the right eye.
--- NOTE | 2020-06-17 00:44 | ECG_ITS ---
[facility] Test Date: 2020-06-17 Pat Name: Julisa Cunha Department: Room: 252 Gender: Female Jigger Operator: : 1945 Requested By: Milady Hamilton Order Number: [id number] Tito MD: Marya Wallace M.D. Measurements Intervals [place] Rate: 71 P: CA: -1 QRS: 55 QRSD: 118 T: 36 QT: 373 QTc: 406 Interpretive Statements Possible sinus rhythm POSSIBLE LATERAL MYOCARDIAL INFARCTION, PROBABLY OLD PROBABLE INFERIOR MYOCARDIAL INFARCTION, PROBABLY OLD Interpretation limited by baseline artifact Compared to ECG 06/16/2020 21:34:14 Sinus rhythm no longer present Sinus arrhythmia no longer present Myocardial infarct finding still present Electronically Signed On 06-17-2020 12:54:44 CDT by Marya Wallace M.D. [email or web address])/store/[id number]
--- NOTE | 2020-06-17 00:51 | PC.NURSE ---
Assessment: Numbness and tingling to left hand/fingertips.
[2020-06-17] MEDS: enoxaparin 40 mg/0.4 mL Syringe SUBCUT (00:56)
[2020-06-17] MEDS: potassium chloride ER 10 mEq Tablet 40 MEQ PO (00:56)
[2020-06-17] MEDS: sodium chloride 0.9% 1,000 ML 75 ML IV (00:56)
[2020-06-17 01:07] LABS: Magnesium 1.3 mg/dL (1.7-2.3)
[2020-06-17] MEDS: magnesium sulfate premix 2 GM/50 ML PIGGYBACK IV (02:50)
[2020-06-17 06:04] LABS: Hepatitis A Antibody IgM Non-Reactive (Nonreactive); Hepatitis B Core IgM Non-Reactive (Nonreactive); Hepatitis B Surface Antigen Non-Reactive (Nonreactive); Hepatitis C Virus Antibody Non-Reactive (Nonreactive)
[2020-06-17 06:06] LABS: Alanine Aminotransferase 37 U/L (0-33); Albumin Level 3.8 g/dL (3.5-5.2); Alkaline Phosphatase 86 IU/L (35-105); Anion Gap 13.4 (5-19); Aspartate Amino Transferase 44 U/L (0-32); Blood Urea Nitrogen 15 mg/dL (8-23); Calcium 9.7 mg/dL (8.5-10.5); Carbon Dioxide 25 mmol/L (22-29); Chloride 100 mmol/L (98-107); Glucose 91 mg/dL (65-115); Magnesium 2.1 mg/dL (1.7-2.3); Osmolality Calculated 276 mOsm/kg (285-295); Potassium 3.4 mmol/L (3.5-5.1); Sodium 135 mmol/L (136-145); Total Bilirubin 0.5 mg/dL (0.15-1.2); Total Protein 6.8 g/dL (6.6-8.7)
[2020-06-17 06:27] LABS: Chol HDL Ratio 4.59 mg/dL (0.0-4.40); Cholesterol 225 mg/dL (0-200); HDL Cholesterol 49 mg/dL (60-100); LDL Cholesterol Calculated 153 mg/dL (50-129); LDL HDL Ratio 3.12 RATIO (0.00-3.22); Triglycerides 115 mg/dL (0-150)
[2020-06-17] MEDS: gabapentin 100 mg Capsule PO ×2 (08:09→17:22)
[2020-06-17] MEDS: aspirin 81 mg EC Tablet PO (08:09)
[2020-06-17] MEDS: famotidine 20 mg Tablet 10 MG PO (08:09)
--- NOTE | 2020-06-17 08:45 | MR_ITS ---
WS: [id number] MRI BRAIN WITHOUT CONTRAST HISTORY: Upper extremity weakness, confusion, CVA COMPARISON: 06/16/2020 CT head TECHNIQUE: Diffusion imaging, multiplanar T1, T2 and FLAIR imaging obtained. No evidence for acute infarct or hemorrhage. Paredes-white matter differentiation is normal. There is extensive periventricular and subcortical white matter signal abnormality throughout the bra in. Consistent with moderate chronic microvascular ischemic disease most likely. No prior large kashmir tory infarct. Ventricles and extra-axial spaces are normal. No inferior displacement of cerebellar tonsils. The sella turcica and pituitary gland are unremarkabl e. Posterior fossa is also unremarkable. Dural venous sinuses and [place] demonstrate no abnormality on this unenhanced studies. Paranasal sinuses: Clear. Mastoid air cells: Normal. Calvarium and scalp: Intact. MR/MR head wo con* [id number] IMPRESSION: 1. No acute infarct. 2. Moderate amount of chronic microvascular ischemic type changes noted bilate rally. Slightly more than expected for age. Additional etiologies to consider a lthough less likely or vasculitis, demyelinating disease or migraines.
--- NOTE | 2020-06-17 09:30 | PC.NURSE ---
Patient was taken by ems transport via stretcher across the street to the [facility] for a MRI at 0855. Patient was alert and oriented x4
--- NOTE | 2020-06-17 11:12 | PC.CHAP ---
Pastoral Care Encounter/Spiritual Assessment Type of Contact [] Declined java swing developer visit [] Patient/Family/Request visit [] Outpatient visit [] Follow-up visit [] Physician referral [] Code/Alert [x] Routine visit [] Staff referral [] Actively dying [] Patient sleeping [] Family support [] [] Out of room [] Palliative care [] [x] Receiving care in room [] Pre-surgical visit [] Trauma [] Long length of stay [] ICU visit [] Other: Relational/Emotional Strength [x] Patient feels connected with others/family/visitors/staff [x] Distress [] Loneliness/isolation [] Abandonment Spirituality of Patient [x] Person of Sharri [] Attends Mandaeism of their Sharri [x] Believes in Prayer [] Reads Bible or Baptism materials [] There are Spiritual issues to be addressed Surgical Assistant Certified Interventions [x] Prayer [x] Active listening [x] Non-anxious presence [x] Spiritual/emotional support [] Crisis/trauma care [x] Spiritual counseling [] Bereavement support [] Provided bereavement packet [] Provided Bible/devotional materials [] Provided toy/stuffed animal, coloring book to patient or family member [] Provided Communion [] Anointing/[place] [] Salvation [x] Completed spiritual assessment [] Other: Impact on Illness or Injury [] Angry [] Fearful [x] Anxious [] Often cries [] Exhaustion [] Unable to work [] Unable to attend alevism [] Unable to walk/stand [] Unable to read [] Unable to drive [] Unable to eat/drink [] Unable to sleep [] Unable to be with family [] Patient intubated [x] Other: Destress heart has a problem breating, has a good attitude, diet, has family, doesn't when she can go home waiting on test results Summary Time spent with patient 10 mins
--- NOTE | 2020-06-17 11:46 | PC.NURSE ---
Patient came back from MRI at [facility] by ems via stretcher at 1030. Patient was alert and oriented x4.
[2020-06-17 12:32] LABS: SARS Covid-2 Antigen Negative (Negative)
--- NOTE | 2020-06-17 16:11 | PM.PN ---
Subjective Subjective: Interval history: no new events, MRI unremarkable except for chronic microvascular changes , tmax 99.7, covid ag negative Medications: Reviewed: Yes Vitals/I&O/Wt Last Vital Signs Temp 98.1 F 06/17/20 15:27 Pulse 61 06/17/20 15:27 Resp 18 06/17/20 15:27 BP 145/78 06/17/20 15:27 Pulse Ox 93 06/17/20 15:27 06/17/20 06/17/20 06/17/20 06:59 14:59 22:59 Intake Total 50 / 50 360 / 360 Balance 50 / 50 360 / 360 Weight last 48 hrs Weight 93.894 kg Data : 06/16/20 17:53 06/17/20 04:32 A&P Assessment and plan (1) Confusion: resolved Likely TIA. No evidence of infection. tmax 99.7, recent tickborne illness as appropriately treated with doxycycline for ehrlichiosis, check serology Status: Acute (2) Left upper extremity numbness: Continued observation to telemetry Echocardiogram pending Carotid duplex pending MRI head, without contrast with chronic microvascular changes Aspirin 81 mg daily and statin daily. Hydration Hold diuretics/blood pressure medication. Allow for permissive hypertension Status: Acute (3) Hypokalemia: Supplement Check magnesium level Status: Acute Additional A&P Information History of ehrlichiosis History of hypertension. Permissive hypertension currently. History of hyperlipidemia. Starting statin secondary to concern for TIA/CVA History of breast cancer, with no evidence of recurrence Multiple other medical problems as outlined by past medical history Full code Lovenox for DVT prophylaxis Attestations Medical Necessity Statement*: continued monitoring, daughter will be here later this evening to get a better assessment of baseline, patient lives alone, nervous to retun home today Coding Level of Care Code Acute Overhead Worker for Akash Koehler Diagnoses Confusion R41.0 Left upper extremity numbness R20.0 Hypokalemia E87.6
[2020-06-17] MEDS: atorvastatin 40 mg Tablet PO (21:09)
[2020-06-17] MEDS: tamsulosin 0.4 mg Capsule PO (21:10)
[2020-06-18] MEDS: enoxaparin 40 mg/0.4 mL Syringe SUBCUT (00:53)
[2020-06-18 03:52] LABS: Basophils % 0.7 %; Eosinophils # 0.2 10^3/uL (0.0-0.8); Eosinophils % 5.3 %; Hematocrit 37.4 % (37.0-47.0); Hemoglobin 11.7 g/dL (11.5-15.3); Lymphocytes # 1.6 10^3/uL (0.8-4.8); Lymphocytes % 39.7 %; Mean Corpuscular HGB Conc 31.3 g/dL (30.0-36.0); Mean Corpuscular Hemoglobin 28.4 pg (28.0-34.0); Mean Corpuscular Volume 90.8 fL (81-99); Mean Platelet Volume 11.1 fL (7.4-10.4); Monocytes # 0.4 10^3/uL (0.2-0.9); Monocytes % 10.2 %; Neutrophils # 1.82 10^3/uL (1.8-7.7); Neutrophils % 44.1 %; Nucleated Red Blood Cells % 0 %; Platelet Count 157 10^3/cmm (130-400); Red Blood Count 4.12 10^6/uL (4.1-5.3); Red Cell Distribution Width 12.7 % (12.1-15.1); White Blood Count 4.1 10^3/uL (4.0-10.0)
[2020-06-18 04:00] VITALS: BP 136/71; PULSE 61; RESP 20; TEMP 36.8; O2SAT 93
[2020-06-18 04:19] LABS: Alanine Aminotransferase 32 U/L (0-33); Albumin Level 3.5 g/dL (3.5-5.2); Alkaline Phosphatase 75 IU/L (35-105); Anion Gap 12.2 (5-19); Aspartate Amino Transferase 37 U/L (0-32); Blood Urea Nitrogen 15 mg/dL (8-23); Calcium 8.7 mg/dL (8.5-10.5); Carbon Dioxide 27 mmol/L (22-29); Chloride 101 mmol/L (98-107); Globulin 2.8 g/dL (1.3-4.6); Glucose 92 mg/dL (65-115); Osmolality Calculated 280 mOsm/kg (285-295); Potassium 3.2 mmol/L (3.5-5.1); Sodium 137 mmol/L (136-145); Total Bilirubin 0.5 mg/dL (0.15-1.2); Total Protein 6.3 g/dL (6.6-8.7)
[2020-06-18 07:32] VITALS: BP 143/75; PULSE 68; RESP 18; TEMP 36.8; O2SAT 95
[2020-06-18] MEDS: famotidine 20 mg Tablet 10 MG PO (08:27)
[2020-06-18] MEDS: gabapentin 100 mg Capsule PO (08:27)
[2020-06-18] MEDS: aspirin 81 mg EC Tablet PO (08:27)
[2020-06-18 08:55] VITALS: BP 140/74; PULSE 67; RESP 16; TEMP 37.2; O2SAT 95
[2020-06-18 10:51] VITALS: BP 142/78; PULSE 62; RESP 16; TEMP 37.1; O2SAT 94
[2020-06-18 13:44] LABS: Lyme AB Screen <0.90 index
--- NOTE | 2020-06-18 13:46 | P.DS_ITS ---
Discharge Providers Date of Admission: 06/16/20 22:47 Date of Discharge: June 18, 2020 Attending Provider at Admission: Axel Zacarias MD Attending Provider at Discharge: [place] Almodovar MD Primary Care Provider: TEDDY Mckeon Diagnoses at Discharge Discharge Diagnosis (1) Confusion: Status: Acute (2) Left upper extremity numbness: Status: Acute (3) Hypokalemia: Status: Acute (4) TIA (transient ischemic attack): Status: Acute Reason for Visit Reason for Visit: NUMBNESS LEFT HAND Hospital Course Discharge Summary: Julisa Cunha is a 75 year old female presenting with left arm numbness. She was also noted to have some confusion spells as described by the daughter as forgetting recent events. She had just been in the CAT scanner and then forgot that she had had the scan. She had a sandwich in her hand and was still looking for it etc. These confusion episodes resolved in a few hours. Overall appearance seem to be that of a CVA versus a TIA. She underwent an MRI of the brain which did not show any acute infarct. There were moderate amount of chronic microvascular ischemic type changes noted bilaterally. CT of the head was unremarkable. Carotid Doppler showed less than 50% stenosis bilaterally. Echocardiogram showed normal systolic and diastolic function. She remained on telemetry monitoring during the course of admission without any arrhythmias noted. She is saturating 94% on room air. Her temperature on the day of admission was noted to be a T-max of 99.7. COVID antigen test was performed and was negative. She does have a recent history of ehrlichiosis a few months ago for which she completed a 14-day course of doxycycline. She did have some confusion noted at the time as well and may have had some degree of CAPACITY PLANNING ENGINEER involvement which has since resolved. Because of the temperature 99.7 and nonspecific symptoms, serology was repeated to ensure that serial titers are downtrending as would be anticipated with improving tick illness. Patient's daughter was at the bedside yesterday and confirms that mom is back at baseline mentation. She has been initiated on aspirin and Lipitor given the possibility of CVA/TIA. She is encouraged to follow-up with neurologist Dr. Finch as an outpatient. Referrals also provided to see Dr. Samaniego from ophthalmology as an outpatient as upon admission it was noted she may have some left-sided visual field defects. She underwent physical therapy assessment during admission and did well. Physical Exam Narrative: EXAM NARRATIVE: GEN: Awake, alert and oriented, no acute distress CVS: S1S2 N RS: CTA B/L Abd: Soft, nt/nd , bs+ CAPACITY PLANNING ENGINEER: no focal neuro deficits Discharge Data Data Completed and Pending: Completed Studies During Hospitalization Category Date Time Status CT head wo con* [id number] Stat Cat Scan 06/16/20 18:43 Completed XR chest 1V arie ble [id number] Stat Exams 06/16/20 18:43 Completed MR head wo con* [id number] Routine MRI 06/17/20 08:45 Completed CV carotid duplex BI* [id number] Routine Ultrasound 06/17/20 00:22 Completed CV echo complete* [id number] Routine Ultrasound 06/17/20 00:22 Completed Pending at discharge Category Date Time Status Tick Panel Stat Lab 06/17/20 11:09 Results Labs from last 24 hours 06/18/20 06/18/20 06/17/20 03:08 03:08 11:09 WBC 4.1 RBC 4.12 Hgb 11.7 Hct 37.4 MCV 90.8 MCH 28.4 MCHC 31.3 RDW 12.7 Plt Count 157 MPV 11.1 H Neut % (Auto) 44.1 Lymph % (Auto) 39.7 [place] % (Auto) 10.2 Eos % (Auto) 5.3 Baso % (Auto) 0.7 Neut # (Auto) 1.82 Lymph # (Auto) 1.6 [place] # (Auto) 0.4 Eos # (Auto) 0.2 Baso # (Auto) 0.0 Nucleated RBC % (a uto) 0 Nucleated RBCs # 0.0 Sodium 137 Potassium 3.2 L Chloride 101 Carbon Dioxide 27 Anion Gap 12.2 BUN 15 Creatinine 1.0 H GFR Calculation Not Reportable Glucose 92 Calculated Osmolal ity 280 L Calcium 8.7 Total Bilirubin 0.5 AST 37 H ALT 32 Alkaline Phosphata se 75 Total Protein 6.3 L Albumin 3.5 Globulin 2.8 [place] Ab (Western B lot) <0.90 Vitals: Last Vital Signs Temp 98.7 F 06/18/20 10:51 Pulse 62 06/18/20 10:51 Resp 16 06/18/20 10:51 BP 142/78 06/18/20 10:51 Pulse Ox 94 06/18/20 10:51 Discharge Plan Discharge Patient Disposition: Home Condition: Stable Prescriptions: New aspirin 81 mg Tablet,Delayed Release (Dr/Ec) 81 mg PO DAILY 30 Days Qty: 30 RF: 0 atorvastatin 40 mg Tablet 40 mg PO BEDTIME 30 Days Qty: 30 RF: 0 pantoprazole [Protonix] 40 mg tablet,delayed release (DR/EC) 40 mg PO DAILY Qty: 30 RF: 0 Continued cholecalciferol (vitamin D3) 4,000 unit capsule 3,000 unit PO DAILY RF: 0 cod liver oil Capsule 1 cap PO DAILY RF: 0 gabapentin 100 mg capsule 100 mg PO BID Qty: 180 RF: 0 triamterene-hydrochlorothiazid 37.5-25 mg tablet 1 tab PO QAM Qty: 90 RF: 0 ibuprofen 200 mg Capsule 200 - 800 mg PO PRN RF: 0 Hold Instructions: Hold for at least 2 weeks secondary to renal failure. Acetaminophen or tylenol is a safe alternative if you do not exceed 2 grams per day (four 500mg tablets). Flomax 0.4 mg capsule 0.4 mg PO BEDTIME RF: 0 Discontinued Aleve 220 mg Tablet 220 mg PO PRN RF: 0 famotidine 20 mg tablet 10 mg PO DAILY RF: 0 Discharge Orders: Discharge Order (Routine); Ordered 06/18/20 Ordered By: [place] Almodovar Referrals: Alice Finch MD [Physician] - 2 weeks Mio Samaniego MD [Physician] - 4-7 days (suspected left visual field defects ) Discharge Diet: Cardiac Discharge Activity: Resume usual activity Discharge Attestations Time Spent in Discharge Care*: greater than 30 min Quality Metrics Clinical Quality Measures During this hospital stay, did patient experience: None Coding Level of Care Code Acute Portfolio Administrator for Chg Fwd Diagnoses Confusion R41.0 Left upper extremity numbness R20.0 Hypokalemia E87.6 TIA (transient ischemic attack) G45.9
[2020-06-18 16:00] VITALS: BP 136/71; PULSE 60; RESP 18; TEMP 36.6; O2SAT 95
[2020-06-18 17:40] VITALS: BP 136/71; PULSE 60; RESP 18; TEMP 36.6; O2SAT 95
--- NOTE | 2020-06-18 17:41 | PC.NURSE ---
Reviewed patient's discharge with patient at this time. Patient verbalized understanding of follow up appointments and medication changes. Patient has no IV. Patient is A&Ox3. Respirations even and non-labored on room air. Patient wheel chaired to her private car.
[2020-06-20 17:14] LABS: RMSF IGG NOT DETECTED; RMSF IGM NOT DETECTED
[2020-06-21 21:54] LABS: E. Chaffeensis AB IGM <1:20; Interpretation PAST INFECTION
== END 2020-06-18 17:30 | disposition home or self-care (01) ==
LOC: ER 18:35 → MEDSURG 23:01
PROVIDERS: Emergency Medicine; Admitting Provider Internal Medicine; PCP Nurse Practitioner; Visit Provider Student in an Organized Health Care Education/Training Program
DX: G45.9 Transient cerebral ischemic attack, unspecified (principal); E87.6 Hypokalemia; I10 Essential (primary) hypertension; E78.2 Mixed hyperlipidemia; Z86.19 Personal history of other infectious and parasitic diseases; Z82.3 Family history of stroke
CPT/HCPCS: 12345; 36415; 70450; 70551; 71045; 80053; 80061; 80074; 81001; 81003; 83605; 83735; 84443; 84484; 85025; 85610; 85651; 86618; 86666; 86757; 87426; 93005; 93306; 93880; 96365; 96372; 97161; 97530; 99283; G0378; J1650; J3475; J7030

== ENCOUNTER 2020-06-23 10:15 | Outpatient (RCR) | payer MEDICARE, OTHER, SELFPAY | END 2020-07-07 23:00 | disposition home or self-care (01) | LOC: SPT 10:15 | PROVIDERS: PCP Nurse Practitioner; Referring Provider Nurse Practitioner; Visit Provider Nurse Practitioner | DX: R26.81 Unsteadiness on feet (principal) | CPT/HCPCS: 97110; 97161 ==

== ENCOUNTER 2020-07-28 09:29 | Outpatient (CLI) | payer MEDICARE, OTHER, SELFPAY ==
[2020-07-28 10:11] LABS: Basophils % 0.4 %; Eosinophils # 0.3 10^3/uL (0.0-0.8); Eosinophils % 4.6 %; Hemoglobin 13.9 g/dL (11.5-15.3); Lymphocytes # 3.1 10^3/uL (0.8-4.8); Lymphocytes % 44.8 %; Mean Corpuscular HGB Conc 30.9 g/dL (30.0-36.0); Mean Corpuscular Hemoglobin 28.3 pg (28.0-34.0); Mean Corpuscular Volume 91.5 fL (81-99); Monocytes # 0.5 10^3/uL (0.2-0.9); Monocytes % 7.5 %; Neutrophils # 2.92 10^3/uL (1.8-7.7); Neutrophils % 42.6 %; Nucleated Red Blood Cells % 0 %; Platelet Count 174 10^3/cmm (130-400); Red Blood Count 4.92 10^6/uL (4.1-5.3); Red Cell Distribution Width 12.6 % (12.1-15.1); White Blood Count 6.9 10^3/uL (4.0-10.0)
[2020-07-28 10:32] LABS: Alanine Aminotransferase 32 U/L (0-33); Albumin Level 4.3 g/dL (3.5-5.2); Alkaline Phosphatase 95 IU/L (35-105); Aspartate Amino Transferase 35 U/L (0-32); Blood Urea Nitrogen 19 mg/dL (8-23); Calcium 9.4 mg/dL (8.5-10.5); Carbon Dioxide 30 mmol/L (22-29); Chloride 97 mmol/L (98-107); Cholesterol 190 mg/dL (0-200); Globulin 3.5 g/dL (1.3-4.6); Glucose 103 mg/dL (65-115); HDL Cholesterol 50 mg/dL (60-100); LDL Cholesterol Calculated 106 mg/dL (50-129); LDL HDL Ratio 2.12 RATIO (0.00-3.22); Osmolality Calculated 285 mOsm/kg (285-295); Sodium 139 mmol/L (136-145); Total Bilirubin 0.7 mg/dL (0.15-1.2); Total Protein 7.8 g/dL (6.6-8.7); Triglycerides 169 mg/dL (0-150)
[2020-07-28 10:34] LABS: Anion Gap 15.8 (5-19); Potassium 3.8 mmol/L (3.5-5.1)
== END 2020-07-28 09:30 | disposition home or self-care (01) ==
LOC: LAB 09:35
PROVIDERS: PCP Nurse Practitioner; Visit Provider Nurse Practitioner
DX: I10 Essential (primary) hypertension (principal); E78.2 Mixed hyperlipidemia
CPT/HCPCS: 80053; 80061; 85025

== ENCOUNTER → 2020-12-05 11:05 | Outpatient (BNVA) | payer MEDICARE, OTHER, SELFPAY | PROVIDERS: PCP Nurse Practitioner; Visit Provider Nurse Practitioner | DX: I10 Essential (primary) hypertension (principal); E55.9 Vitamin D deficiency, unspecified | CPT/HCPCS: 80053; 80061; 81000; 82306; 85025 ==

== ENCOUNTER → 2021-01-06 13:10 | Outpatient (BNVA) | payer MEDICARE, OTHER, SELFPAY | PROVIDERS: PCP Nurse Practitioner; Visit Provider Urology | DX: N30.20 Other chronic cystitis without hematuria (principal) | CPT/HCPCS: 81003 ==

== ENCOUNTER 2021-01-12 09:38 | Outpatient (CLI) | payer MEDICARE, OTHER, SELFPAY ==
--- NOTE | 2021-01-12 09:42 | MM_ITS ---
WS: [id number] BILATERAL DIGITAL DIAGNOSTIC MAMMOGRAM MAMMOGRAPHY WITH CAD CLINICAL INFORMATION: HX OF BREAST CA HISTORY: COMPARISON: January 11, 2020 TECHNIQUE: Bilateral CC, MLO, and ML views. FINDINGS: Scattered fibroglandular densities bilaterally. Vascular calcification. Benign calcifications left gr eater than right breast. Spiculated asymmetric density along the posterior left chest wall unchanged since the prior examinations consistent with prior lumpectomy. Vascular calcification. Lucent centere d calcifications. No suspicious focal mass, asymmetry, calcifications, or architectural distortion. No evidence of eunice gnancy. MM/[place] [id number] IMPRESSION: BI-RADS: 2-Benign FOLLOW UP: 1 Year Follow-up Recommend return to annual diagnostic mammography.
== END 2021-01-12 09:39 | disposition home or self-care (01) ==
LOC: RADSHAW 09:40
PROVIDERS: PCP Nurse Practitioner; Visit Provider Internal Medicine Medical Oncology
DX: Z85.3 Personal history of malignant neoplasm of breast (principal)
CPT/HCPCS: 77066

== ENCOUNTER 2021-03-25 13:47 | Outpatient (CLI) | payer MEDICARE, OTHER, SELFPAY ==
--- NOTE | 2021-03-25 18:55 | ONC FU_ITS ---
Dr. Davis Patient Follow-Up Note Patient: Julisa Cunha Unit #: [id number]: [id number] Dicatated By: Luis Manuel Davis M.D.Date of Visit:March 25, 2021 Onc Med Follow-up/Prog Note Chief Complaint: Breast cancer. 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 She had presented with abnormal routine mammogram. The study on 12/25/2014 showed a 1.4 cm mass in the left posterior breast at 3:00 position. Mammogram on 01/09/2015 was BI-RADS 4c. She underwent excisional biopsy on 02/06/[address] Andrews. Her surgical pathology showed a 0.8 cm, grade 2/3 infiltrating adenocarcinoma with focal mucinous histology and negative margins. Lymphovascular invasion was present. Prognostic profile revealed ER 90%, HI 40%, HER-2/jose alfredo 2+ by IHC, not amplified by FISH at 1.3. [place] lymph node biopsy on 03/07/2015 recovered 3 negative lymph nodes. Thus, her disease was stage IA (T1b, N0, M0). She completed adjuvant radiation treatment on 05/05/2015 to a total dose of 6000 cGy. She did eventually agree to adjuvant hormonal treatment and she started anastrozole 1 mg daily in March of 2015. DEXA scan revealed osteopenia, with T score -1.5. She also was noted to have vitamin D deficiency and received replacement. She had subsequently developed a large cyst in the left lower breast, for which she underwent aspiration on 07/15/2015. Follow-up ultrasound of the left breast on 12/02/2015 showed decrease in the size of the cyst to 0.8 cm. As of her follow-up visit on 04/19/2018 she appeared to be tolerating treatment with acceptable toxicity and she continued anastrozole 1 mg daily. She was seen for a scheduled visit in October 2018. At that time she indicated that she had stopped taking the anastrozole 2 1/2 months earlier, apparently because it was no longer being provided to her by the fire fighters dispatcher and she was going to have to pay for it. At that time she had been feeling somewhat foggy headed and off-balance, and those symptoms did improve when she stopped the medication. She then began further adjuvant hormonal therapy with exemestane 25 mg daily. She stopped the exemestane following her visit in March 2019 due to multiple side effects. At her follow-up visit in September 2019 she appeared stable clinically and at that point she was just followed on observation/expectant management. Her other medical illnesses include hypertension and GERD. She also has chronic left sciatic pain. She is a nonsmoker. She is seen for a follow-up visit. She says she has had a rough year. She was diagnosed with tick fever last April and she then required treatment for a bad urinary tract infection. In June she was hospitalized after presenting to the emergency room with numbness in her left arm and hand. She also was having confusion. It was thought to be a TIA, she was treated with aspirin. In July she underwent a right total hip arthroplasty. She had no complications with that procedure. Despite all that, she has been feeling good lately. She has pretty good energy, and she is able to do light work. ECOG score is 1. Her appetite is good. She has gained weight. She does not have fever or night sweats. She has no shortness of breath, cough, or chest pain. She currently has no GI or complaints. She has some soreness in her hands, but she has no other joint or bone pain. She occasionally has headache. She very seldom has dizziness. She has had no further numbness/paresthesia or other focal neurologic symptoms. Medications: Cholecalciferol 1 (3000 Units) Tablet Oral daily, Cod Liver Oil 1 (1000 mg) Capsule Oral daily, Diovan 1 (40 mg) Tablet Oral daily PRN, Gabapentin 1 (100 mg) Capsule Oral b.i.d., Triamterene-HCTZ 1 (37.5-25 mg) Tablet Oral daily Allergies: lisinopril and surgical glue. Vital Signs: Performed on March 25, 2021 14:34 Height - 65.00 in Weight - 217.8 lbs (HIGH) BSA - 2.05 sq.m BMI - 36.24 (HIGH) Temperature - 97.5 F (LOW) Pulse - 62 /min Respiration - 18 /min BP - 149/82 mm(hg) (HIGH) O2 Sat - 98 % Pain - 0 Fatigue - 1 Physical Examination: Constitutional - She looks good generally, Eyes - Sclerae nonicteric. Conjunctivae clear, ENMT - No lesions noted in the oral cavity, Hematologic/Lymphatic - No cervical or clavicular adenopathy, Respiratory - Lungs are clear with good air movement bilaterally, Cardiovascular - Heart rhythm is regular. There is no murmur, gallop, or rub noted, Breasts - There is mild induration in the left breast. There are no breast masses noted. There is no axillary adenopathy, Abdomen - Soft. Liver and spleen are not enlarged. There is no abdominal mass or ascites noted and there is no inguinal adenopathy, Extremities - No edema. Pedal pulses are palpable bilaterally, Neurologic - No focal neurologic deficits noted. Problem List: 1. Grade 2 infiltrating adenocarcinoma of the left breast, stage IA (T1b, N0, M0), ER/HI positive and HER-2/jose alfredo negative. 2. Her initial screening showed evidence of osteopenia, T score -1.5, and vitamin D deficiency. 3. Hypertension. 4. GERD. 5. She has had chronic left sciatic pain. 6. She had treatment for tick fever in April 2020. 7. She had a hospitalization in June 2020 for suspected TIA. 8. She has history of recurrent urinary tract infection. 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 She underwent excisional biopsy on 02/06/2015 followed by axillary sentinel lymph node biopsy on 03/07/2015. She was given radiation to the left breast, completed on 05/05/2015 to 6000 cGy. Adjuvant hormonal therapy with anastrozole 1 mg daily began in March 2015. She opted to stop anastrozole in July 2018 because the medication was no longer being provided to her. In retrospect, it appeared likely that she had been having some mild CNMT symptoms with it, as those had improved when she stopped the medication. In November 2018 she began further adjuvant hormonal therapy with exemestane 25 mg daily. Initially she seemed to be tolerating it with acceptable toxicity. However, following her visit in March 2019 she developed multiple side effects with it, and she did opt to stop taking it. She was then followed on expectant management. During follow-up she continued to have some musculoskeletal pain, mainly in the right sciatic area. In July 2020 she underwent right total hip arthroplasty. She had no complications with the procedure. Since then she has been doing well clinically. Thus far there has been no evidence of recurrence of the breast cancer. She will continue on expectant management. She does need to have yearly, diagnostic mammograms. I will go ahead and get those scheduled for next year. She will otherwise just continue her regular follow-up with Natasha Sheffield. I will plan to see her again only as needed. Signed By: Luis Manuel Davis M.D. <<Signature on File>>
== END 2021-03-25 13:48 | disposition home or self-care (01) ==
LOC: ONCMED 13:49
PROVIDERS: PCP Nurse Practitioner; Visit Provider Internal Medicine Medical Oncology
DX: Z08 Encounter for follow-up examination after completed treatment for malignant neoplasm (principal); Z85.3 Personal history of malignant neoplasm of breast; E55.9 Vitamin D deficiency, unspecified; I10 Essential (primary) hypertension; K21.9 Gastro-esophageal reflux disease without esophagitis; M54.32 Sciatica, left side; Z86.19 Personal history of other infectious and parasitic diseases; Z86.73 Personal history of transient ischemic attack (TIA), and cerebral infarction without residual deficits; Z87.440 Personal history of urinary (tract) infections; Z79.899 Other long term (current) drug therapy; Z92.21 Personal history of antineoplastic chemotherapy; Z79.890 Hormone replacement therapy
CPT/HCPCS: 99214

== ENCOUNTER → 2021-06-08 15:10 | Outpatient (BNVA) | payer MEDICARE, OTHER, SELFPAY | PROVIDERS: PCP Nurse Practitioner; Visit Provider Nurse Practitioner | DX: I10 Essential (primary) hypertension (principal); E55.9 Vitamin D deficiency, unspecified; E78.2 Mixed hyperlipidemia; M54.16 Radiculopathy, lumbar region; Z85.3 Personal history of malignant neoplasm of breast; K21.9 Gastro-esophageal reflux disease without esophagitis | CPT/HCPCS: 80053; 80061; 82306; 84443; 85025 ==

== ENCOUNTER → 2021-12-03 10:52 | Outpatient (BNVA) | payer MEDICARE, OTHER, SELFPAY | PROVIDERS: PCP Nurse Practitioner; Visit Provider Nurse Practitioner | DX: I10 Essential (primary) hypertension (principal); E55.9 Vitamin D deficiency, unspecified | CPT/HCPCS: 80053; 80061; 82306; 85025 ==

== ENCOUNTER → 2022-01-05 13:43 | Outpatient (BNVA) | payer MEDICARE, OTHER, SELFPAY | PROVIDERS: PCP Nurse Practitioner; Visit Provider Urology | DX: R39.11 Hesitancy of micturition (principal); Z87.440 Personal history of urinary (tract) infections | CPT/HCPCS: 81003 ==

== ENCOUNTER 2022-01-25 09:32 | Outpatient (CLI) | payer MEDICARE, OTHER, SELFPAY ==
--- NOTE | 2022-01-25 09:45 | MM_ITS ---
WS: [id number] BILATERAL 3D TOMOSYNTHESIS DIGITAL DIAGNOSTIC MAMMOGRAPHY WITH CAD CLINICAL INFORMATION: HX OF BREAST C COMPARISON: January 12, 2021 TECHNIQUE: Bilateral CC, MLO, and ML views. FINDINGS: Scattered fibroglandular densities bilaterally. Prior postoperative changes lumpectomy LEFT breast. Dystrophic calcifications LEFT breast. Vascular c alcifications. Parenchymal fibrosis in the deep LEFT breast near the chest wall at the lumpectomy sit e. RIGHT breast is unremarkable and unchanged with a few incidental calcifications. MM/[id number] IMPRESSION: BI-RADS: 2-Benign FOLLOW UP: 1 Year Follow-up Recommend return to annual diagnostic mammography.
== END 2022-01-25 09:33 | disposition home or self-care (01) ==
PROVIDERS: PCP Nurse Practitioner; Visit Provider Internal Medicine Medical Oncology
DX: Z85.3 Personal history of malignant neoplasm of breast (principal); R92.1 Mammographic calcification found on diagnostic imaging of breast
CPT/HCPCS: 77062

== ENCOUNTER 2022-02-27 00:05 | Emergency (ER) | payer MEDICARE, OTHER, SELFPAY ==
[2022-02-27 00:10] VITALS: BP 208/116; PULSE 102; RESP 14; TEMP 38; O2SAT 92; BMI 39.4
--- NOTE | 2022-02-27 00:16 | XRR_ITS ---
PROCEDURE INFORMATION: Exam: XR Chest Exam date and time: 02/27/2022 12:22 AM Age: 77 years old Clinical indication: Fever TECHNIQUE: Imaging protocol: XR of the chest. Views: 1 view. COMPARISON: CR XR chest 1V portable [id number] 06/16/2020 7:15 PM FINDINGS: Lungs: No consolidation. Pleural spaces: Unremarkable. No pleural effusion. No pneumothorax. Heart/Mediastinum: No cardiomegaly. Bones/joints: No acute fracture. XR/XR chest 1V portable [id number] IMPRESSION: No acute findings.
[2022-02-27] MEDS: acetaminophen 500 mg Tablet 1000 MG PO (00:21)
--- NOTE | 2022-02-27 00:23 | ED_ITS ---
HPI - Fever General: Chief Complaint: Fever Stated Complaint: Fever Time Seen by Provider: 02/27/22 00:15 Source: patient Mode of arrival: ambulatory Limitations: no limitations History of Present Illness: 77-year-old female states that she is outside mowing the yard and came in and was having some body aches. States her checked her temp it was 99 states she rechecked it again and then later it is 100.3. States that she been having some chills this evening along with the body aches. She was concerned about flu or COVID. She denies any cough states that she actually feels improved since being here and denies any vomiting or diarrhea denies any abdominal pain. Associated symptoms: Reports chills; Deny abdominal pain, chest pain, diarrhea, dysuria, headache(s), nausea or vomiting Review of Systems Const: Reports: fever(s), chills and body aches Eyes: Denies: blurry vision or eye discomfort ENMT: Denies: throat pain or dental pain Card: Denies: chest pain Resp: Denies: dyspnea GI: Denies: abdominal pain, nausea, vomiting or diarrhea : Denies: dysuria Musc: Denies: neck pain or back pain Skin/Breast: Denies: rash Neuro: Denies: headache(s) Psych: Denies: depression Aleksandr/Lymph: Denies: easy bruising All/Imm: Denies: urticaria PFSH ED PFSH: Medical History Chronic left lumbar radiculopathy Ehrlichiosis Gastro-esophageal reflux disease without esophagitis Gross hematuria History of cancer of left breast December 2014 HTN, goal below 130/80 Mixed hyperlipidemia Refusal of statin medication by patient Tick-borne disease Vitamin D insufficiency Surgical History H/O breast biopsy History of bilateral cataract extraction History of total left hip replacement History of total right hip replacement 08/11/2020 S/P lymph node biopsy Family History Family/Other CAD (coronary artery disease) Stroke Hypertension Cancer Breast Social History Smoking and tobacco status: never smoked Second hand smoke exposure: No Smoking risk assessment/counseling performed?: No Alcohol intake: never Desire information about alcohol rehabilitation?: No Counseling given: No Desire information about substance/drug rehabilitation?: No Counseling given: No Adopted: No Caregiver/support person: No Lives independently: Yes Household members: none Housing: House Marital status: Number of children: 1 service: No Current occupational status: retired Pets and animals: No History of recent travel: No Current gender identity: Female Physical Exam Const: COMMON NORMALS: no acute distress, patient oriented x3 and healthy appearing HENMT: COMMON NORMALS: normocephalic and atraumatic HEAD & SCALP: normocephalic and atraumatic Eye: COMMON NORMALS: Equal, round and reactive pupils present and EOMs intact bilaterally PUPIL: Yes Equal, round and reactive pupils present Neck/C-Spine: COMMON NORMALS: full ROM and supple Chest: COMMONS NORMALS: normal inspection of the chest and normal palpation of entire chest wall Resp: COMMON NORMALS: normal respiratory effort, No retractions, No use of accessory muscles and clear to auscultation bilaterally AUSCULTATION: clear to auscultation bilaterally Cardio: COMMON NORMALS: regular rate, regular rhythm and No murmurs present (Cardio) RATE: regular rate RHYTHM: regular rhythm GI: COMMON NORMALS: Normal to inspection, nondistended, normoactive bowel sounds present, Soft to palpation, non-tender and no masses PALPATION: Yes Soft to palpation Extremity: COMMON NORMALS: normal to inspection and full ROM Neuro: COMMON NORMALS: patient oriented x3, moves all extremities and no focal motor deficits Psych: COMMON NORMALS: mental status grossly normal, Normal thought process present and cooperative THOUGHT PROCESS: Normal thought process present Skin: COMMON NORMALS: no rashes or lesions noted and no wounds GENERAL SKIN EXAM: no rashes or lesions noted Course Vital Signs: Vital signs: Vital Signs Temperature 100.4 F H 02/27/22 00:10 Pulse Rate 95 02/27/22 01:26 Respiratory Rate 20 H 02/27/22 01:26 Blood Pressure 174/64 02/27/22 01:26 Pulse Oximetry 94 02/27/22 01:26 MDM - Fever Medical Decision Making Patient presents here with fever body aches consistent with a viral syndrome blood work here all is normal. She feels much improved she has no signs of sepsis no signs of pneumonia. She is stable for discharge she is to follow-up with PCP and return if worsening. Lab Data : 02/27/22 00:32 04 00:32 Radiology Impressions Chest X-Ray 02/27/22 00:16 IMPRESSION: No acute findings. Laboratory Results WBC 8.6 10^3/uL (4.0-10.0) 02/27/22 00:32 RBC 4.47 10^6/uL (4.1-5.3) 02/27/22 00:32 Hgb 12.9 g/dL (11.5-15.3) 02/27/22 00:32 Hct 40.3 % (37.0-47.0) 02/27/22 00:32 MCV 90.2 fl (81-99) 02/27/22 00:32 MCH 28.9 pg (28.0-34.0) 02/27/22 00:32 MCHC 32.0 g/dL (30.0-36.0) 02/27/22 00:32 RDW 12.1 % (12.1-15.1) 02/27/22 00:32 Plt Count 215 10^3/cmm (130-400) 02/27/22 00:32 MPV 10.4 fL (7.4-10.4) 02/27/22 00:32 Neut % (Auto) 71.9 % 02/27/22 00:32 Lymph % (Auto) 16.4 % 02/27/22 00:32 Sheridan % (Auto) 8.0 % 02/27/22 00:32 Eos % (Auto) 3.3 % 02/27/22 00:32 Baso % (Auto) 0.3 % 02/27/22 00:32 Neut # (Auto) 6.19 10^3/uL (1.8-7.7) 02/27/22 00:32 Lymph # (Auto) 1.4 10^3/uL (0.8-4.8) 02/27/22 00:32 Sheridan # (Auto) 0.7 10^3/uL (0.2-0.9) 02/27/22 00:32 Eos # (Auto) 0.3 10^3/uL (0.0-0.8) 02/27/22 00:32 Baso # (Auto) 0.0 10^3/uL (0.0-0.1) 02/27/22 00:32 Nucleated RBC % (auto) 0 % 02/27/22 00: Nucleated RBCs # 0.0 /100WBC 02/27/22 00:32 Sodium 135 mmol/L (136-145) L 02/27/22 00:32 Potassium 3.9 mmol/L (3.5-5.1) 02/27/22 00:32 Chloride 96 mmol/L (98-107) L 02/27/22 00:32 Carbon Dioxide 27 mmol/L (22-29) 02/27/22 00:32 Anion Gap 15.9 (5-19) 02/27/22 00:32 BUN 23 mg/dL (8-23) 02/27/22 00:32 Creatinine 1.3 mg/dL (0.5-0.9) H 02/27/22 00:32 GFR Calculation Not Reportable 02/27/22 00: Glucose 123 mg/dL (65-115) H 02/27/22 00:32 Calculated Osmolality 285 mOsm/kg (285-295) 02/27/22 00:32 Calcium 9.2 mg/dL (8.5-10.5) 02/27/22 00:32 Total Bilirubin 0.4 mg/dL (0.15-1.2) 02/27/22 00:32 AST 24 U/L (0-32) 02/27/22 00:32 ALT 19 U/L (0-33) 02/27/22 00:32 Alkaline Phosphatase 125 IU/L (35-105) H 02/27/22 00:32 Total Protein 7.0 g/dL (6.6-8.7) 02/27/22 00:32 Albumin 4.4 g/dL (3.5-5.2) 02/27/22 00:32 Globulin 2.6 g/dL (1.3-4.6) 02/27/22 00:32 Urine Color Yellow (Yellow) 02/27/22 01:23 Urine Appearance Clear (CLEAR) 02/27/22 01:23 Urine pH 9 (5-7) H 02/27/22 01:23 Ur Specific [place] 1.015 (1.005-1.030) 02/27/22 01:23 Urine Protein Neg (Negative) 02/27/22 01:23 Urine Glucose (UA) Norm (Normal) 02/27/22 01:23 Urine Ketones Negative (Negative) 02/27/22 01:23 Urine Blood Neg (Negative) 02/27/22 01:23 Urine Nitrate Negative (Negative) 02/27/22 01:23 Urine Bilirubin Neg (Negative) 02/27/22 01:23 Prot Sulfosalicylic Acd Positive (Negative) 02/27/22 01:23 Urine Urobilinogen Norm mg/dL (Negative) 02/27/22 01:23 Ur Leukocyte Esterase 1+ (Negative) H 02/27/22 01:23 Urine RBC 0-4 /hpf (0-2) H 02/27/22 01:23 Urine WBC 40-55 /hpf (0-5) H 02/27/22 01:23 Ur Squamous Epith Cells 5-10 /hpf (0-5) H 02/27/22 01:23 Amorphous Sediment Not Reportable 02/27/22 01:23 Urine Bacteria 2+ /hpf (NONE) H 02/27/22 01:23 Influenza Type A Ag Negative (Negative) 02/27/22 00:32 Influenza Type B Ag Negative (Negative) 02/27/22 00:32 SARS-CoV-2 Ag (Rapid) Negative (Negative) 02/27/22 00:32 Discharge Plan Discharge Patient Disposition: Home Clinical Impression: Acute viral syndrome Condition: Stable Prescriptions: No Action zinc 50 mg tablet 50 mg PO DAILY 0RF ascorbate calcium (vitamin C) 500 mg tablet 500 mg PO DAILY 0RF famotidine 20 mg tablet 20 mg PO DAILY Qty: 90 1RF Rx Instructions: Getting over the counter aspirin 81 mg tablet,delayed release (DR/EC) 81 mg PO DAILY 0RF ibuprofen 200 mg capsule 200 - 800 mg PO PRN 0RF Hold Instructions: Hold for at least 2 weeks secondary to renal failure. Acetaminophen or tylenol is a safe alternative if you do not exceed 2 grams per day (four 500mg tablets). cholecalciferol (vitamin D3) 25 mcg (1,000 unit) capsule 75 mcg PO DAILY 0RF atorvastatin 20 mg tablet 20 mg PO DAILY Qty: 90 1RF gabapentin 100 mg capsule 100 mg PO BID Qty: 180 1RF losartan 50 mg tablet 50 mg PO DAILY Qty: 90 1RF triamterene-hydrochlorothiazid 37.5-25 mg tablet 1 tab PO QAM Qty: 90 1RF doxycycline hyclate 100 mg tablet 100 mg PO BID Qty: 28 3RF Discharge Orders: Discharge ED (Routine); Ordered 02/27/22 Ordered By: Olman Wu Referrals: Natasha Sheffield, VOIP TECHNICIAN-C [Primary Care Provider] - 1-3 days Discharge Diet: Advance as tolerated Discharge Activity: Resume usual activity Patient Instructions: Viral Syndrome (ED) Coding Level of Care Code ED Water Jet Operator for Maria Del Carmeng Fwd Exam Comprehensive
[2022-02-27 00:44] LABS: Basophils % 0.3 %; Eosinophils # 0.3 10^3/uL (0.0-0.8); Eosinophils % 3.3 %; Hematocrit 40.3 % (37.0-47.0); Hemoglobin 12.9 g/dL (11.5-15.3); Lymphocytes # 1.4 10^3/uL (0.8-4.8); Lymphocytes % 16.4 %; Mean Corpuscular Hemoglobin 28.9 pg (28.0-34.0); Mean Corpuscular Volume 90.2 fl (81-99); Mean Platelet Volume 10.4 fL (7.4-10.4); Monocytes # 0.7 10^3/uL (0.2-0.9); Neutrophils # 6.19 10^3/uL (1.8-7.7); Neutrophils % 71.9 %; Nucleated Red Blood Cells % 0 %; Platelet Count 215 10^3/cmm (130-400); Red Blood Count 4.47 10^6/uL (4.1-5.3); Red Cell Distribution Width 12.1 % (12.1-15.1); White Blood Count 8.6 10^3/uL (4.0-10.0)
[2022-02-27 01:04] LABS: Influenza A by IFA Negative (Negative); Influenza B by IFA Negative (Negative); SARS Covid-2 Antigen Negative (Negative)
[2022-02-27 01:06] LABS: Alanine Aminotransferase 19 U/L (0-33); Albumin Level 4.4 g/dL (3.5-5.2); Alkaline Phosphatase 125 IU/L (35-105); Anion Gap 15.9 (5-19); Aspartate Amino Transferase 24 U/L (0-32); Blood Urea Nitrogen 23 mg/dL (8-23); Calcium 9.2 mg/dL (8.5-10.5); Carbon Dioxide 27 mmol/L (22-29); Chloride 96 mmol/L (98-107); Globulin 2.6 g/dL (1.3-4.6); Glucose 123 mg/dL (65-115); Osmolality Calculated 285 mOsm/kg (285-295); Potassium 3.9 mmol/L (3.5-5.1); Sodium 135 mmol/L (136-145); Total Bilirubin 0.4 mg/dL (0.15-1.2)
[2022-02-27 01:26] VITALS: BP 174/64; PULSE 95; RESP 20; O2SAT 94
[2022-02-27 01:47] LABS: Urine Appearance Clear (CLEAR); Urine Color Yellow (Yellow)
[2022-02-27 01:48] LABS: Add Urine Microscopic? YES; Bilirubin Urine Neg (Negative); Blood Urine Neg (Negative); Glucose Urine UA Norm (Normal); Ketones Urine Negative (Negative); Leukocyte Esterase Urine 1+ (Negative); Nitrate Urine Negative (Negative); Protein Urine Neg (Negative); Specific Gravity, Urine 1.015 (1.005-1.030); Sulfosalicylic Acid Urine Positive (Negative); Urobilinogen Urine Norm (Negative); pH Urine 9 (5-7)
[2022-02-27 01:49] LABS: Add Urine Culture? Yes; Bacteria Urine 2+ /hpf; RBC Urine 0-4 /hpf (0-2); WBC Urine 40-55 /hpf (0-5)
[2022-02-27 02:33] VITALS: BP 159/67; PULSE 80; RESP 20; TEMP 36.9; O2SAT 99
== END 2022-02-27 02:36 | disposition home or self-care (01) ==
PROVIDERS: Emergency Provider Emergency Medicine; PCP Nurse Practitioner
DX: B34.9 Viral infection, unspecified (principal); I10 Essential (primary) hypertension; Z79.82 Long term (current) use of aspirin; R50.9 Fever, unspecified
CPT/HCPCS: 71045; 80053; 81001; 85025; 87086; 87426; 87804; 99283

== ENCOUNTER → 2022-06-04 11:34 | Outpatient (BNVA) | payer MEDICARE, OTHER, SELFPAY | PROVIDERS: PCP Nurse Practitioner; Visit Provider Nurse Practitioner | DX: E55.9 Vitamin D deficiency, unspecified (principal); I10 Essential (primary) hypertension | CPT/HCPCS: 80053; 80061; 82306; 82607; 84443; 85025 ==

== ENCOUNTER → 2022-11-30 11:18 | Outpatient (BNVA) | payer MEDICARE, OTHER, SELFPAY | PROVIDERS: PCP Nurse Practitioner; Visit Provider Nurse Practitioner | DX: E78.2 Mixed hyperlipidemia (principal); I10 Essential (primary) hypertension; M54.16 Radiculopathy, lumbar region; E55.9 Vitamin D deficiency, unspecified | CPT/HCPCS: 80053; 80061; 82306; 84443; 85025 ==

== ENCOUNTER 2023-01-27 11:00 | Outpatient (CLI) | payer MEDICARE, OTHER, SELFPAY ==
--- NOTE | 2023-01-27 11:04 | MM_ITS ---
WS: [id number] DIAGNOSTIC BILATERAL DIGITAL BREAST TOMOSYNTHESIS MAMMOGRAPHY WITH CAD HISTORY: Z85.3 - Personal history of malignant neoplasm of breast COMPARISON: 01/10/2019, 01/11/2020, 01/25/2022 TECHNIQUE: Bilateral craniocaudad, mediolateral oblique, and mediolateral views are submitted with to mosynthesis and SM. Computer aided detection utilized. Breast composition: There are scattered areas of fibroglandular density. Postoperative scarring is re identified in the posterior LEFT breast just below the nipple line. Adjacent dystrophic calcification s at the lumpectomy site. Volume loss in the LEFT breast from lumpectomy. Similar appearance as yusra red to prior studies. No recurrent mass. RIGHT breast is negative for acute interval change. MM/[place] [id number] IMPRESSION: BI-RADS: 2-Benign FOLLOW UP: 1 Year Follow-up
== END 2023-01-27 11:01 | disposition home or self-care (01) ==
PROVIDERS: PCP Nurse Practitioner; Visit Provider Nurse Practitioner
DX: Z12.31 Encounter for screening mammogram for malignant neoplasm of breast (principal); Z85.3 Personal history of malignant neoplasm of breast
CPT/HCPCS: 77062; G0279

== ENCOUNTER → 2023-04-22 10:17 | Outpatient (BNVA) | payer MEDICARE, OTHER, SELFPAY | PROVIDERS: PCP Nurse Practitioner; Visit Provider Registered Nurse Neonatal Intensive Care | DX: J02.9 Acute pharyngitis, unspecified (principal); U07.1 COVID-19 | CPT/HCPCS: 87426 ==

== ENCOUNTER → 2023-05-24 12:03 | Outpatient (BNVA) | payer MEDICARE, OTHER, SELFPAY | PROVIDERS: PCP Nurse Practitioner; Visit Provider Nurse Practitioner | DX: E55.9 Vitamin D deficiency, unspecified (principal); E78.2 Mixed hyperlipidemia | CPT/HCPCS: 80053; 80061; 82306; 84443 ==

== ENCOUNTER → 2023-11-01 10:52 | Outpatient (BNVA) | payer MEDICARE, OTHER, SELFPAY | PROVIDERS: PCP Nurse Practitioner; Visit Provider Nurse Practitioner | DX: I10 Essential (primary) hypertension (principal); E55.9 Vitamin D deficiency, unspecified | CPT/HCPCS: 80053; 80061; 82306; 82607; 84443; 85025 ==

== ENCOUNTER → 2023-11-30 10:11 | Outpatient (BNVA) | payer MEDICARE, OTHER, SELFPAY | PROVIDERS: PCP Nurse Practitioner; Referring Provider Nurse Practitioner; Visit Provider Internal Medicine Cardiovascular Disease | DX: I10 Essential (primary) hypertension (principal); E78.2 Mixed hyperlipidemia; R00.1 Bradycardia, unspecified | CPT/HCPCS: 99203 ==

== ENCOUNTER → 2023-12-07 14:46 | Outpatient (BNVA) | payer MEDICARE, OTHER, SELFPAY | PROVIDERS: PCP Nurse Practitioner; Visit Provider Internal Medicine Cardiovascular Disease | DX: G45.9 Transient cerebral ischemic attack, unspecified (principal); R00.1 Bradycardia, unspecified | CPT/HCPCS: 93225 ==

== ENCOUNTER 2024-02-01 09:04 | Outpatient (CLI) | payer MEDICARE, OTHER, SELFPAY ==
--- NOTE | 2024-02-01 09:06 | MM_ITS ---
WS: [id number] BILATERAL 3D TOMOSYNTHESIS DIGITAL DIAGNOSTIC MAMMOGRAPHY WITH CAD CLINICAL INFORMATION: Z85.3 - Personal history of malignant neoplasm of breast HISTORY: Breast cancer COMPARISON: 2022 TECHNIQUE: Bilateral CC, MLO, and ML views. FINDINGS: Scattered fibroglandular densities bilaterally. Vascular calcification. Dystrophic calcifications. In cidental punctate calcifications. Prior postoperative changes of lumpectomy in the deep posterior LEF T breast near the chest wall with parenchymal fibrosis. This is stable over multiple prior examinatio ns. Dystrophic calcifications at the lumpectomy site. Volume loss LEFT breast is unchanged. No suspicious focal mass, asymmetry, calcifications, or architectural distortion. No evidence of eunice gnancy. IMPRESSION: MM/[place] [id number] BI-RADS: 2-Benign FOLLOW UP: 1 Year Follow-up Recommend return to annual diagnostic mammography.
== END 2024-02-01 09:05 | disposition home or self-care (01) ==
LOC: RAD 09:04
PROVIDERS: PCP Nurse Practitioner; Visit Provider Nurse Practitioner
DX: Z85.3 Personal history of malignant neoplasm of breast (principal); R92.323 Mammographic fibroglandular density, bilateral breasts
CPT/HCPCS: 77062; G0279

== ENCOUNTER → 2024-04-24 10:57 | Outpatient (BNVA) | payer MEDICARE, OTHER, SELFPAY | PROVIDERS: PCP Nurse Practitioner; Visit Provider Nurse Practitioner | DX: I10 Essential (primary) hypertension (principal); E55.9 Vitamin D deficiency, unspecified | CPT/HCPCS: 80053; 80061; 84443; 85025 ==

== ENCOUNTER → 2024-10-09 09:53 | Outpatient (BNVA) | payer MEDICARE, OTHER, SELFPAY | PROVIDERS: PCP Nurse Practitioner; Visit Provider Nurse Practitioner | DX: I10 Essential (primary) hypertension (principal); E78.2 Mixed hyperlipidemia | CPT/HCPCS: 80053; 80061; 84443 ==

== ENCOUNTER 2025-02-04 11:08 | Outpatient (CLI) | payer MEDICARE, OTHER, SELFPAY ==
--- NOTE | 2025-02-04 11:30 | MM_ITS ---
WS: [id number] DIAGNOSTIC BILATERAL DIGITAL BREAST TOMOSYNTHESIS MAMMOGRAPHY WITH CAD HISTORY: Z85.3 - Personal history of malignant neoplasm of breast COMPARISON: 02/01/2024, 01/27/2023, 01/12/2021 TECHNIQUE: Bilateral craniocaudad, mediolateral oblique, and mediolateral views are submitted with tomosynthesis and SM. Computer aided detection utilized. Breast composition: There are scattered areas of fibroglandular density. Reidentified is the postoperative spiculated scar in the posterior LEFT breast against the chest wall with associated dystrophic calcifications. No new mass. Bilateral arterial and dystrophic calcifications in each breast. MM/MM diag BI tomosynthesis [id number] IMPRESSION: BI-RADS: 2 - Benign. FOLLOW UP: 1 Year Follow-up
== END 2025-02-04 11:09 | disposition home or self-care (01) ==
PROVIDERS: PCP Nurse Practitioner; Visit Provider Nurse Practitioner
DX: Z85.3 Personal history of malignant neoplasm of breast (principal); R92.323 Mammographic fibroglandular density, bilateral breasts; N64.89 Other specified disorders of breast; R92.1 Mammographic calcification found on diagnostic imaging of breast
CPT/HCPCS: 77062; G0279

== ENCOUNTER → 2025-04-15 09:55 | Outpatient (BNVA) | payer MEDICARE, OTHER, SELFPAY | PROVIDERS: PCP Nurse Practitioner; Visit Provider Nurse Practitioner | DX: I10 Essential (primary) hypertension (principal); E78.2 Mixed hyperlipidemia; E55.9 Vitamin D deficiency, unspecified | CPT/HCPCS: 80053; 80061; 82306; 82607; 85025 ==

== ENCOUNTER 2025-04-23 13:35 | Outpatient (CLI) | payer MEDICARE, OTHER, SELFPAY ==
--- NOTE | 2025-04-23 14:00 | XR_ITS ---
WS: [id number] DEXA (DUAL ENERGY X-RAY ABSORPTIOMETRY) Bone mineral density was performed using a [employer] machine. HISTORY: Z78.0 - Asymptomatic menopausal state COMPARISON: 05/04/2017 Lumbar spine BMD (L1-L4): 1.158 g/cm2 T score: -0.2 Z score: 0.5 Left forearm BMD: 0.710 g/cm2. T score: -1.9 Z score: 0.8 Compared to the prior study from 05/04/2017. Lumbar spine bone mineral density has increased by 6.3%. LEFT forearm bone mineral density has increased by 1.9%. XR/XR DEXA axial skeleton* [id number] IMPRESSION: OSTEOPENIA based upon the WHO classification for females. Significant increase in bone mineral density within the lumbar spine since the prior study. No significant change within the LEFT forearm.
== END 2025-04-23 13:36 | disposition home or self-care (01) ==
PROVIDERS: PCP Nurse Practitioner; Visit Provider Nurse Practitioner
DX: Z13.820 Encounter for screening for osteoporosis (principal); Z78.0 Asymptomatic menopausal state; M85.80 Other specified disorders of bone density and structure, unspecified site
CPT/HCPCS: 77080

== ENCOUNTER → 2025-10-14 08:27 | Outpatient (BNVA) | payer MEDICARE, OTHER, SELFPAY | PROVIDERS: PCP Nurse Practitioner; Visit Provider Nurse Practitioner | DX: E78.2 Mixed hyperlipidemia (principal); E55.9 Vitamin D deficiency, unspecified | CPT/HCPCS: 80053; 80061; 82306; 84443 ==

== ENCOUNTER → 2025-10-17 10:38 | Outpatient (BNVA) | payer MEDICARE, OTHER, SELFPAY | PROVIDERS: PCP Nurse Practitioner; Referring Provider Nurse Practitioner; Visit Provider Internal Medicine Cardiovascular Disease | DX: R00.1 Bradycardia, unspecified (principal); I49.9 Cardiac arrhythmia, unspecified; I49.8 Other specified cardiac arrhythmias; I49.3 Ventricular premature depolarization; I49.1 Atrial premature depolarization; I47.10 Supraventricular tachycardia, unspecified; I48.20 Chronic atrial fibrillation, unspecified | CPT/HCPCS: 93242 ==